=== PATIENT | female | born 1990 | race Caucasian/White ===

== ENCOUNTER 2017-03-09 14:39 | Emergency (ER) | payer OTHER ==
[2017-03-09 14:59] VITALS: O2SAT 98
[2017-03-09] MEDS ORDERED: TORAdol 30 mg Injection IM ONE (15:31)
--- NOTE | 2017-03-09 15:35 | ERPHSYRPT ---
- History of Present Illness Time Seen by Provider: 03/09/17 15:28 Source: patient Exam Limitations: no limitations Patient Subjective Stated Complaint: lt back pain Triage Nursing Assessment: at 0800--stood to stand and had sudden onset of pain to lt lower back to lt toes. denies injury. good sensation. no brusing or swelling noted. Physician History: 26-year-old white female with history of chronic back pain Arrives with complaint of pain in the left the low lumbar region symptoms since 8:00 this morning she states she stood up and began having severe pain states she can't get comfortable. She is not having any urinary symptoms no neurologic symptoms she is moving all extremities she denies any injuries. Past medical history includes chronic back pain Past surgical history is negative. Timing/Duration: today (8:00 this morning) Severity: moderate Modifying Factors: Improves With: nothing Associated Symptoms: other (pain left lumbar region), No nausea, No vomiting, No abdominal pain, No shortness of breath, No heartburn, No diaphoresis, No cough, No chills, No chest pain, No fever, No headaches, No loss of appetite, No malaise, No rash, No syncope, No seizure, No weakness Allergies/Adverse Reactions: No Known Drug Allergies Allergy (Unverified 03/09/17 14:58) Home Medications: Gabapentin [Neurontin] 300 mg PO TID 09/27/15 [History] Bupropion HCl [Wellbutrin] 100 mg PO DAILY 03/09/17 [History] Metformin HCl [Glucophage] 1,000 mg PO BID 03/09/17 [History] Nifedipine [Procardia Xl] 60 mg PO DAILY 03/09/17 [History] Hx Tetanus, Diphtheria Vaccination/Date Given: Yes Hx Influenza Vaccination/Date Given: No Hx Pneumococcal Vaccination/Date Given: No Immunizations Up to Date: Yes - Review of Systems Constitutional: No Fever, No Chills Eyes: No Symptoms Ears, Nose, & Throat: No Symptoms Respiratory: No Cough, No Dyspnea Cardiac: No Chest Pain, No Edema, No Syncope Abdominal/Gastrointestinal: No Abdominal Pain, No Nausea, No Vomiting, No Diarrhea Genitourinary Symptoms: No Dysuria Musculoskeletal: Other (pain left lumbar region) Skin: No Rash Neurological: No Dizziness, No Focal Weakness, No Sensory Changes Psychological: No Symptoms Endocrine: No Symptoms All Other Systems: Reviewed and Negative - Past Medical History Pertinent Past Medical History: Yes Musculoskeletal History: Other Psycho-Social History: Anxiety Female Reproductive Disorders: Other Other Medical History: BACK PROBLEMS - Past Surgical History Past Surgical History: No - Social History Smoking Status: Current every day smoker Exposure to second hand smoke: No Drug Use: none Patient Lives Alone: No - Female History Hx Last Menstrual Period: 02/05/2017 - Nursing Vital Signs Nursing Vital Signs: Initial Vital Signs Temperature 97.9 F Temperature Source Oral Pulse Rate 104 Respiratory Rate 16 Blood Pressure [] 119/76 Pain Intensity 4 - Physical Exam General Appearance: moderate distress, alert Eye Exam: PERRL/EOMI, eyes nml inspection Ears, Nose, Throat Exam: normal ENT inspection, TMs normal, pharynx normal, moist mucous membranes Neck Exam: normal inspection, non-tender, supple, full range of motion Respiratory Exam: normal breath sounds, lungs clear, No respiratory distress Cardiovascular Exam: regular rate/rhythm, normal heart sounds, normal peripheral pulses Gastrointestinal/Abdomen Exam: soft, normal bowel sounds, No tenderness, No mass Back Exam: normal range of motion, other (pain left lumbar region), No CVA tenderness, No vertebral tenderness Extremity Exam: normal inspection, normal range of motion, pelvis stable Neurologic Exam: alert, oriented x 3, cooperative, normal mood/affect, nml cerebellar function, nml station & gait, sensation nml, No motor deficits Skin Exam: normal color, warm, dry, No rash Lymphatic Exam: No adenopathy SpO2 Interpretation: normal (98%) SpO2: 98 Oxygen Delivery: Room Air - Radiology Exams L-Spine X-ray Interpretation: Discussed w/ radiologist (lumbar spine, and L5-L1 degenerative changes nothing acute) Ordered Tests: Active Orders 24 hr Category Date Time Status LUMBAR COMPLETE (MIN 4 VIEWS) Stat Exams 03/09/17 15:32 Completed CULTURE,URINE Stat Lab 03/09/17 16:28 Ordered HCG,QUALITATIVE URINE Stat Lab 03/09/17 15:32 Completed UA W/ MICROSCOPIC Stat Lab 03/09/17 15:32 Completed Medication Summary Discontinued Medications Generic Name Dose Route Start Last Admin Trade Name Freq PRN Reason Stop Dose Admin Ketorolac Tromethamine 60 mg 03/09/17 15:31 03/09/17 15:41 Toradol 30 Mg Injection IM 03/09/17 15:32 60 mg STAT ONE Administration Ketorolac Tromethamine Confirm 03/09/17 15:39 Toradol 30 Mg Injection Administered 03/09/17 15:40 Dose 60 mg .ROUTE .STK-MED ONE Lab/Rad Data: Laboratory Results 03/09/17 03/09/17 Range/Units 15:32 15:32 Ur Collection Type CLEAN CATCH Urine Color YELLOW (YELLOW) Urine Appearance CLEAR (CLEAR) Urine pH 5.0 (5-6) Ur Specific [place] 1.010 (1.005-1.025) Urine Protein NEGATIVE (Negative) Urine Glucose (UA) NEGATIVE (NEGATIVE) mg/dL Urine Ketones NEGATIVE (NEGATIVE) Urine Nitrite NEGATIVE (NEGATIVE) Urine Bilirubin NEGATIVE (NEGATIVE) Urine Urobilinogen 0.2 (0-1) mg/dL Urine WBC (Auto) SMALL (NEGATIVE) Urine RBC (Auto) TRACE-LYSED (0-5) Hilario/ul Urine Microscopic WBC 5-10 (0-5) /HPF Ur Epithelial Cells MODERATE (FEW) /HPF Urine Bacteria FEW (NEGATIVE) /HPF Urine HCG, Qual NEGATIVE (Negative) Specimen Received 03/09/17 1515 - Progress Progress: improved Progress Note: 03/09/17 16:30 Patient feeling better but not completely pain-free after Toradol 60 IM. Urine shows 5-10 white cells negative nitrites. LS-spine shows degenerative changes L5-S1 nothing acute. Will plan to discharge patient with Flexeriespinoza, [place], she is to take over-the- counter Advil for pain as well. 03/09/17 16:35 Patient's Flexeril tablets shows 10 mg orally 3 times a day 0 tablets have changed this to show 15 tablets. - Departure Time of Disposition: 16:31 Departure Disposition: Home Clinical Impression: Back pain Qualifiers: Back pain location: low back pain Chronicity: acute Back pain laterality: left Sciatica presence: without sciatica Qualified Code(s): M54.5 - Low back pain Lumbar strain Qualifiers: Encounter type: initial encounter Qualified Code(s): S39.012A - Strain of muscle, fascia and tendon of lower back, initial encounter Condition: Fair Critical Care Time: No Instructions: Low Back Pain Additional Instructions: Return home. Advil 2-3 tablets orally every 6 hours with food for 5 days as needed for pain. Flexeril 10 mg orally 3 times a day for 5 days. [place] 5/325 #15 one orally every 4-6 hours as needed for pain. Follow-up with your family doctor if symptoms are worse, no better in 48 hours, or persist longer than one week. Return for acute distress or for severe symptoms. Prescriptions: Cyclobenzaprine HCl [Flexeril] 10 mg PO TID #0 tablet Hydrocodone/Acetaminophen [[place] 5-325 Tablet] 1 tab PO Q4-6HPRN PRN #15 tablet PRN Reason: Pain
[2017-03-09 15:36] LABS: Collection Type CLEAN CATCH
[2017-03-09 15:38] LABS: Bacteria FEW /HPF (NEGATIVE); COMPLETE URINE MICROSCOPIC? YES; Epithelial Cells MODERATE /HPF (FEW)
[2017-03-09] MEDS ORDERED: TORAdol 30 mg Injection ONE (15:39)
--- NOTE | 2017-03-09 16:25 | XRAY ---
Indication: Back pain. No known injury. Comparison: None 5 views of the lumbar spine demonstrates 5 lumbar vertebral segments in normal alignment with mild/moderate L5-S1 degenerative disc disease as evidenced by disc space loss and endplate sclerosis/spurring. Same level also demonstrates moderate bilateral degenerative facet arthropathy. No acute fracture, subluxation, or pars interarticularis defect. Visualized soft tissues unremarkable. Impression: L5-S1 degenerative changes. Nothing acute.
[2017-03-09 16:52] VITALS: BP 128/70; PULSE 100
== END 2017-03-09 16:51 | disposition home or self-care (01) ==
LOC: ED 14:39
DX: M54.5 Low back pain (principal); S39.012A Strain of muscle, fascia and tendon of lower back, initial encounter; Z87.898 Personal history of other specified conditions
CPT/HCPCS: 72110; 81000; 84703; 87086; 99284; J1885

== ENCOUNTER 2017-04-11 19:04 | Emergency (ER) | payer OTHER ==
[2017-04-11] MEDS ORDERED: AMOXIL 500 MG PO ONE (20:33)
--- NOTE | 2017-04-11 20:33 | ERPHSYRPT ---
- History of Present Illness Time Seen by Provider: 04/11/17 20:25 Source: patient Exam Limitations: clinical condition Patient Subjective Stated Complaint: a0 - gestation of 10 weeks - reports that she began having fever earlier today with cough/cold symptoms with rhinorrhea and cough and tenderness in the chest with headache since today as well - also reports that she has pain in the right groing when she stands Triage Nursing Assessment: ambulatory to treatment area - steady gait - moves all extremities with equal strength. alert/oriented - pleasant affect. skin pwd - no rash/injury. resps easy - non-labored Physician History: PATIENT IS A -2, PARA-1, 10 WEEK GESTATION WHO COMPLAINS OF SORETHROAT AND PRODUCTIVE COUGH FOR 2-3 DAYS. HAS PAIN UPON COUGHING, DENIES FEVER, DYSPNEA CHILLS OR ABDOMINAL PAIN. Timing/Duration: day(s) Cough Quality/Degree: productive cough Possible Cause: occasional episodes Modifying Factors: Improves With: coughing Associated Symptoms: chest pain/soreness, sore throat Allergies/Adverse Reactions: No Known Drug Allergies Allergy (Unverified 04/11/17 19:58) Home Medications: Vits W-Ca,Fe,FA(<1Mg) [] 1 each PO 04/11/17 [History] Hx Tetanus, Diphtheria Vaccination/Date Given: No Hx Influenza Vaccination/Date Given: No Hx Pneumococcal Vaccination/Date Given: No Immunizations Up to Date: Yes - Review of Systems Constitutional: No Fever, No Chills Eyes: No Symptoms Ears, Nose, & Throat: No Symptoms Respiratory: Cough, No Dyspnea Cardiac: No Symptoms, No Chest Pain, No Edema, No Syncope Abdominal/Gastrointestinal: No Symptoms, No Abdominal Pain, No Nausea, No Vomiting, No Diarrhea Genitourinary Symptoms: No Symptoms, No Dysuria Musculoskeletal: No Symptoms, No Back Pain, No Neck Pain Skin: No Symptoms, No Rash Neurological: No Symptoms, No Dizziness, No Focal Weakness, No Sensory Changes Psychological: No Symptoms Endocrine: No Symptoms All Other Systems: Reviewed and Negative - Past Medical History Pertinent Past Medical History: Yes Musculoskeletal History: Other Psycho-Social History: Anxiety Female Reproductive Disorders: Other Other Medical History: BACK PROBLEMS - Past Surgical History Past Surgical History: No - Social History Smoking Status: Never smoker Exposure to second hand smoke: No Drug Use: none Patient Lives Alone: No - Female History Hx Last Menstrual Period: 02/05/2017 Expected Date of Delivery: 11/12/17 - Nursing Vital Signs Nursing Vital Signs: Initial Vital Signs Temperature 99.1 F Temperature Source Oral Pulse Rate 95 Respiratory Rate 14 Blood Pressure [Right Arm] 137/73 Pain Intensity 4 - Physical Exam General Appearance: no apparent distress, alert Eye Exam: PERRL/EOMI, eyes nml inspection Ears, Nose, Throat Exam: normal ENT inspection, TMs normal, pharynx normal, moist mucous membranes Neck Exam: normal inspection, non-tender, supple, full range of motion Respiratory Exam: normal breath sounds, chest tenderness (PARASTERNAL CHEST WALL TENDERNESS T-2 TO T-5), lungs clear, No respiratory distress Cardiovascular Exam: regular rate/rhythm, normal heart sounds Gastrointestinal/Abdomen Exam: soft, other (NONTENDER), No tenderness Back Exam: normal inspection, No CVA tenderness, No vertebral tenderness Extremity Exam: normal inspection, normal range of motion Neurologic Exam: alert, oriented x 3, cooperative, normal mood/affect, sensation nml, No motor deficits Skin Exam: normal color, warm, dry, No rash Lymphatic Exam: No adenopathy SpO2: 98 Oxygen Delivery: Room Air Ordered Tests: Active Orders 24 hr Category Date Time Status Clean Catch Urine Specimen STAT Care 04/11/17 20:28 Active CULTURE, THROAT Stat Lab 04/11/17 20:28 Received STREP SCREEN-BETA A Stat Lab 04/11/17 20:28 Completed UA W/ MICROSCOPIC Stat Lab 04/11/17 20:45 Completed Medication Summary Discontinued Medications Generic Name Dose Route Start Last Admin Trade Name Braedenq PRN Reason Stop Dose Admin Amoxicillin 500 mg 04/11/17 20:33 04/11/17 20:38 Amoxil 500 Mg PO 04/11/17 20:34 500 mg STAT ONE Administration Amoxicillin Confirm 04/11/17 20:37 Amoxil 500 Mg Administered 04/11/17 20:38 Dose 500 mg .ROUTE .[facility]-MED ONE Lab/Rad Data: Laboratory Results 04/11/17 04/11/17 Range/Units 20:45 20:28 Ur Collection Type CLEAN CATCH Urine Color YELLOW (YELLOW) Urine Appearance CLEAR (CLEAR) Urine pH 6.0 (5-6) Ur Specific [place] >=1.030 (1.005-1.025) Urine Protein TRACE (Negative) Urine Glucose (UA) 500 (NEGATIVE) mg/dL Urine Ketones TRACE (NEGATIVE) Urine Nitrite NEGATIVE (NEGATIVE) Urine Bilirubin NEGATIVE (NEGATIVE) Urine Urobilinogen 0.2 (0-1) mg/dL Urine WBC (Auto) TRACE (NEGATIVE) Urine RBC (Auto) NEGATIVE (0-5) Hilario/ul Urine Microscopic WBC 2-5 (0-5) /HPF Ur Epithelial Cells MODERATE (FEW) /HPF Calcium Oxalate Crystal 2-5 (NEGATIVE) /HPF Urine Bacteria RARE (NEGATIVE) /HPF Urine Mucus MANY (NEGATIVE) /HPF Streptococcus Screen NEGATIVE (Negative) Specimen Received [id number] - Progress Progress Note: 04/11/17 20:33 PATIENT GIVEN AMOXICILLIN 500MG ORALLY Counseled pt/family regarding: lab results, diagnosis, need for follow-up - Departure Time of Disposition: 21:47 Departure Disposition: Home Clinical Impression: ACUTE BRONCHITIS, Condition: Stable Critical Care Time: No Referrals: ASHLEY VILLATORO [Primary Care Provider] - Additional Instructions: TYLENOL EVERY 4 HOURS NEEDED FOR PAIN OR FEVER. ANTIBIOTIC AMOXICILLIN 500MG EVERY 8 HOURS FOR 10 DAYS. CONSULT YOUR FAMILY PHYSICIAN FOR EVALUATION IN 1 WEEK FOR FOLLOWUP Prescriptions: Amoxicillin 500 mg PO TID #30 tablet
[2017-04-11] MEDS ORDERED: AMOXIL 500 MG ONE (20:37)
[2017-04-11 21:01] LABS: Collection Type CLEAN CATCH
[2017-04-11 21:02] LABS: COMPLETE URINE MICROSCOPIC? YES
[2017-04-11 21:04] LABS: Mucus MANY /HPF (NEGATIVE)
[2017-04-11 21:07] LABS: Bacteria RARE /HPF (NEGATIVE); Epithelial Cells MODERATE /HPF (FEW)
[2017-04-11 22:03] VITALS: BP 124/76; PULSE 98; O2SAT 97
== END 2017-04-11 22:19 | disposition home or self-care (01) ==
LOC: ED 19:04
DX: J20.9 Acute bronchitis, unspecified (principal); R07.89 Other chest pain; Z33.1 Pregnant state, incidental; Z3A.10 10 weeks gestation of pregnancy
CPT/HCPCS: 81000; 87070; 87430; 99283; 99284; A9270-GY

== ENCOUNTER 2017-06-06 20:41 | Emergency (ER) | payer OTHER ==
--- NOTE | 2017-06-06 21:17 | ERPHSYRPT ---
- History of Present Illness Time Seen by Provider: 06/06/17 21:10 Source: patient Exam Limitations: no limitations Patient Subjective Stated Complaint: Pt sts suprapubic cramping after doing some cleaning today. Pt sts recently tx for UTI. Pt sts no bleeding. Pt sts pain is 4/10. Triage Nursing Assessment: Pt alert, oriented, answers all questions appropriately. Skin p/w/d, resps non-labored. Pt ambulatory to tx room, steady gait noted. Physician History: 27-year-old white female who states that she is 15 weeks with a last menstrual period of February 05, 2017 who is 2 para 1. She arrives with complaint of lower abdominal cramping since this afternoon after cleaning. Patient states she has some pain in her back as well. She has no vaginal discharge no dysuria no hematuria no vaginal bleeding. Past medical history includes anxiety and back problems Patient states she has had an ultrasound this at about 8 weeks estimated gestational age Timing/Duration: today (this afternoon) Severity: moderate Modifying Factors: Improves With: other (states she was cleaning when she began to have abdominal cramping) Associated Symptoms: abdominal pain, No nausea, No vomiting, No shortness of breath, No heartburn, No diaphoresis, No chills, No chest pain, No fever, No headaches, No loss of appetite, No malaise, No rash, No syncope, No seizure, No weakness Allergies/Adverse Reactions: No Known Drug Allergies Allergy (Unverified 04/11/17 19:58) Home Medications: Vits W-Ca,Fe,FA(<1Mg) [] 1 each PO 04/11/17 [History] Hx Tetanus, Diphtheria Vaccination/Date Given: No Hx Influenza Vaccination/Date Given: No Hx Pneumococcal Vaccination/Date Given: No Immunizations Up to Date: Yes - Review of Systems Constitutional: No Fever, No Chills Eyes: No Symptoms Ears, Nose, & Throat: No Symptoms Respiratory: No Cough, No Dyspnea Cardiac: No Chest Pain, No Edema, No Syncope Abdominal/Gastrointestinal: Abdominal Pain (abdominal cramping) Genitourinary Symptoms: (15 weeks ), No Dysuria Musculoskeletal: No Back Pain, No Neck Pain Skin: No Rash Neurological: No Dizziness, No Focal Weakness, No Sensory Changes Psychological: No Symptoms Endocrine: No Symptoms All Other Systems: Reviewed and Negative - Past Medical History Pertinent Past Medical History: Yes Cardiac History: Hypertension Musculoskeletal History: Other Psycho-Social History: Anxiety Female Reproductive Disorders: Other Other Medical History: BACK PROBLEMS, gestational diabetes prior - Past Surgical History Past Surgical History: No - Social History Smoking Status: Never smoker Exposure to second hand smoke: No Drug Use: none Patient Lives Alone: No - Female History Expected Date of Delivery: 11/25/17 - Nursing Vital Signs Nursing Vital Signs: Initial Vital Signs Temperature 98.2 F Temperature Source Oral Pulse Rate 65 Respiratory Rate 16 Blood Pressure [Right Arm] 119/59 Pain Intensity 4 - Physical Exam General Appearance: no apparent distress, alert Eye Exam: PERRL/EOMI, eyes nml inspection Ears, Nose, Throat Exam: normal ENT inspection, TMs normal, pharynx normal, moist mucous membranes Neck Exam: normal inspection, non-tender, supple, full range of motion Respiratory Exam: normal breath sounds, lungs clear, No respiratory distress Cardiovascular Exam: regular rate/rhythm, normal heart sounds, normal peripheral pulses Gastrointestinal/Abdomen Exam: soft, normal bowel sounds, tenderness (slight lower abdominal tenderness), other Pelvic Exam: normal external exam, other (pelvic examination normal external female genitalia cervix is closed, small amount of white to yellow vaginal mucus no adnexal tenderness) Back Exam: normal inspection, normal range of motion, No CVA tenderness, No vertebral tenderness Extremity Exam: normal inspection, normal range of motion, pelvis stable Neurologic Exam: alert, oriented x 3, cooperative, normal mood/affect, nml cerebellar function, nml station & gait, sensation nml, No motor deficits Skin Exam: normal color, warm, dry, No rash Lymphatic Exam: No adenopathy SpO2 Interpretation: normal Oxygen Delivery: Room Air - Course Nursing assessment & vital signs reviewed: Yes Ordered Tests: Active Orders 24 hr Category Date Time Status Heart Tones-ED STAT Care 06/06/17 21:10 Active IV Insertion STAT Care 06/06/17 21:10 Active Pelvic Exam Assist STAT Care 06/06/17 21:10 Active Re-Check Vital Signs STAT Care 06/06/17 21:10 Active CBC W DIFF Stat Lab 06/06/17 21:30 Completed CMP Stat Lab 06/06/17 21:30 Completed UA W/RFX UR CULTURE Stat Lab 06/06/17 21:30 Completed Wet Prep Stat Lab 06/06/17 01:28 Received Medication Summary Generic Name Dose Route Start Last Admin Trade Name Debbi PRN Reason Stop Dose Admin Sodium Chloride 1,000 mls @ 999 mls/hr 06/07/17 00:49 06/07/17 00:53 Sodium Chloride 0.9% 1000 Ml IV 06/07/17 01:49 999 mls/hr .Q1H1M STA Administration Discontinued Medications Generic Name Dose Route Start Last Admin Trade Name Debbi PRN Reason Stop Dose Admin Sodium Chloride Confirm 06/07/17 00:52 Sodium Chloride 0.9% 1000 Ml Administered 06/07/17 00:53 Dose 1,000 mls @ ud .ROUTE .STK-MED ONE Lab/Rad Data: Laboratory Result Diagrams 06/06/17 21:30 06/06/17 21:30 Laboratory Results 06/06/17 06/06/17 06/06/17 Range/Units 21:30 21:30 21:30 WBC 10.1 (4.0-10.5) K/mm3 RBC 4.14 (4.1-5.4) M/mm3 Hgb 12.0 (12.0-16.0) gm/dl Hct 35.4 (35-47) % MCV 85.5 (78-100) fl MCH 29.0 (26-32) pg MCHC 33.9 (32-36) g/dl RDW 12.5 (11.5-14.0) % Plt Count 223 (150-450) K/mm3 MPV 11.1 H (6-9.5) fl Gran % 73.1 H (36.0-66.0) % Lymphocytes % 18.1 L (24.0-44.0) % Monocytes % 7.6 (0.0-12.0) % Eosinophils % 1.0 (0.00-5.0) % Basophils % 0.2 (0.0-0.4) % Basophils # 0.02 (0-0.4) Sodium 139 (136-145) mEq/L Potassium 3.8 (3.5-5.1) mEq/L Chloride 104 (98-107) mEq/L Carbon Dioxide 23.3 (21-32) mEq/L Anion Gap 15.0 (5-15) MEQ/L BUN 8 L (9-20) mg/dL Creatinine 0.61 (0.55-1.30) mg/dl Estimated GFR > 60 ML/MIN Glucose 97 (70-110) MG/DL Calcium 9.5 (8.5-10.1) mg/dL Total Bilirubin 0.10 L (0.2-1.0) mg/dL AST 14 L (15-37) U/L ALT 17 (12-78) U/L Alkaline Phosphatase 42 L (46-116) U/L Serum Total Protein 6.9 (6.4-8.2) gm/dL Albumin 3.1 L (3.4-5.0) g/dL Ur Collection Type CLEAN CATCH Urine Color YELLOW (YELLOW) Urine Appearance CLOUDY (CLEAR) Urine pH 7.0 (5-6) Ur Specific [place] 1.020 (1.005-1.025) Urine Protein NEGATIVE (Negative) Urine Ketones NEGATIVE (NEGATIVE) Urine Blood NEGATIVE (0-5) Hilario/ul Urine Nitrite NEGATIVE (NEGATIVE) Urine Bilirubin NEGATIVE (NEGATIVE) Urine Urobilinogen NORMAL (0-1) mg/dL Ur Leukocyte Esterase NEGATIVE (NEGATIVE) Urine Glucose NEGATIVE (NEGATIVE) mg/dL Specimen Received [id number] - Progress Progress: improved Progress Note: 06/07/17 00:11 Patient's laboratory data essentially normal. heart tones in the 140s. Awaiting placement in the room for nurse to assist with pelvic examination. 06/07/17 01:27 Patient is pain free she is receiving 1 L of normal saline plan to discharge. Labs are normal. Awaiting GC and chlamydia. . - Departure Time of Disposition: 01:27 Departure Disposition: Home Clinical Impression: Intrauterine Abdominal pain Qualifiers: Abdominal location: unspecified location Qualified Code(s): R10.9 - Unspecified abdominal pain Condition: Fair Critical Care Time: No Referrals: ASHLEY VILLATORO [Primary Care Provider] - Additional Instructions: Return home. Plenty of fluids. Tylenol every 4 hours as needed for pain. Rest. Follow-up with your family doctor. Return for acute distress or for severe symptoms.
[2017-06-06 21:41] LABS: BASOPHIL % 0.2 % (0.0-0.4); Granulocytes % 73.1 % (36.0-66.0); Lymphocytes % 18.1 % (24.0-44.0); Mean Cell Volume 85.5 fl (78-100); Mean Platelet Volume 11.1 fl (6-9.5); Monocytes % 7.6 % (0.0-12.0); Platelet Count 223 K/mm3 (150-450); Red Blood Count 4.14 M/mm3 (4.1-5.4); Red Cell Distribution Width 12.5 % (11.5-14.0); White Blood Count 10.1 K/mm3 (4.0-10.5)
[2017-06-06 21:45] LABS: Collection Type CLEAN CATCH
[2017-06-06 21:46] LABS: ADD URINE CULTURE? NO (NO); Bilirubin NEGATIVE (NEGATIVE); Blood NEGATIVE Ery/ul (0-5); COMPLETE URINE MICROSCOPIC? NO; Glucose NEGATIVE (NEGATIVE); Leukocyte Esterase NEGATIVE (NEGATIVE)
[2017-06-06 22:08] LABS: ALBUMIN 3.1 g/dL (3.4-5.0); ALKALINE PHOSPHATASE 42 U/L (46-116); BLOOD UREA NITROGEN 8 mg/dL (9-20); CHLORIDE 104 mEq/L (98-107); Carbon Dioxide 23.3 mEq/L (21-32); Glucose 97 MG/DL (70-110); Potassium 3.8 mEq/L (3.5-5.1); SGOT/AST 14 U/L (15-37); SODIUM 139 mEq/L (136-145); Total Protein 6.9 gm/dL (6.4-8.2)
[2017-06-06 22:22] LABS: SGPT/ALT 17 U/L (12-78)
[2017-06-07] MEDS ORDERED: Sodium Chloride 0.9% 1000 ML 1,000 ML IV STA (00:49)
[2017-06-07 00:51] VITALS: BP 119/59; PULSE 65; O2SAT 99
[2017-06-07] MEDS ORDERED: Sodium Chloride 0.9% 1000 ML 1,000 ML ONE (00:52)
[2017-06-07 01:34] LABS: Bacteria Few; Trichomonas None Seen; Yeast None Seen
[2017-06-07 01:35] LABS: Clue Cells Few
[2017-06-07 03:04] LABS: CHLAMYDIA DNA NEGATIVE
== END 2017-06-07 02:01 | disposition home or self-care (01) ==
LOC: ED 20:41
DX: O26.892 Other specified pregnancy related conditions, second trimester (principal); R10.9 Unspecified abdominal pain; M54.9 Dorsalgia, unspecified; I10 Essential (primary) hypertension
CPT/HCPCS: 36000; 36415; 80053; 81002; 85025; 87210; 87490; 87590; 96360; 99284

== ENCOUNTER 2018-07-31 08:39 | Emergency (ER) | payer OTHER, MEDICAID ==
[2018-07-31] MEDS ORDERED: Rocephin 1000 MG INJ (10:02)
[2018-07-31] MEDS ORDERED: solu-MEDROL 125 MG (10:02)
[2018-07-31] MEDS: solu-MEDROL 125 MG IM (10:10)
[2018-07-31] MEDS: Rocephin 1000 MG INJ IM (10:10)
== END 2018-07-31 10:30 | disposition home or self-care (01) ==
LOC: ED 08:39
CPT/HCPCS: 96372; J0696; J2930

== ENCOUNTER 2018-10-31 09:14 | Emergency (ER) | payer OTHER ==
--- NOTE | 2018-10-31 09:52 | ERPHSYRPT ---
- History of Present Illness Time Seen by Provider: 10/31/18 09:40 Historian: patient Exam Limitations: no limitations Patient Subjective Stated Complaint: states began having rlq abd pain at 0430 today. started period at the same time. denies any urinary symptoms. Triage Nursing Assessment: ambulated to room per self. skin w/d, color normal, resp easy. abd soft, large, tender Physician History: 28 y/o white female presents with sudden onset of rlq abd pain that occurred at 0430 this am. pt has h/o ovarian cysts. pt started her menstrual period this am. pt has had a btl in past. no n/v/d. no vaginal discharge. pt is having worsening pain. pain radiates into right flank. Timing/Duration: today Activities at Onset: none Quality: cramping Abdominal Pain Onset Location: RLQ, flank Pain Radiation: flank Severity of Pain-Max: moderate Severity of Pain-Current: mild Modifying Factors: Improves With: lying down (improves) Previous symptoms: no prior history Allergies/Adverse Reactions: No Known Drug Allergies Allergy (Verified 10/31/18 09:44) Home Medications: Sertraline HCl [Zoloft] 25 mg PO DAILY 10/31/18 [History] Hx Tetanus, Diphtheria Vaccination/Date Given: No Hx Influenza Vaccination/Date Given: No Hx Pneumococcal Vaccination/Date Given: No - Review of Systems Constitutional: No Symptoms Eyes: No Symptoms Ears, Nose, & Throat: No Symptoms Respiratory: No Symptoms Cardiac: No Symptoms Abdominal/Gastrointestinal: Abdominal Pain (rlq), No Nausea, No Vomiting, No Diarrhea Genitourinary Symptoms: Flank Pain (right), Vaginal Bleeding, No Vaginal Discharge Musculoskeletal: No Symptoms Skin: No Symptoms Neurological: No Symptoms Psychological: No Symptoms Endocrine: No Symptoms Hematologic/Lymphatic: No Symptoms Immunological/Allergic: No Symptoms All Other Systems: Reviewed and Negative - Past Medical History Pertinent Past Medical History: Yes Neurological History: No Pertinent History ENT History: No Pertinent History Cardiac History: Hypertension Respiratory History: Bronchitis Endocrine Medical History: No Pertinent History Musculoskeletal History: Other GI Medical History: No Pertinent History History: No Pertinent History Psycho-Social History: Anxiety, Depression Female Reproductive Disorders: Other Other Medical History: BACK PROBLEMS, gestational diabetes prior - Past Surgical History Past Surgical History: Yes Neuro Surgical History: No Pertinent History Cardiac: No Pertinent History Respiratory: No Pertinent History Gastrointestinal: No Pertinent History Genitourinary: No Pertinent History Female Surgical History: Tubal Ligation - Social History Smoking Status: Current every day smoker How long have you smoked: 12 Exposure to second hand smoke: No Drug Use: none Patient Lives Alone: No - Female History Hx Last Menstrual Period: 10/31/18 Hx Now: No - Nursing Vital Signs Nursing Vital Signs: Initial Vital Signs Temperature 98.6 F 10/31/18 09:25 Pulse Rate 97 H 10/31/18 09:25 Respiratory Rate 16 10/31/18 09:25 Blood Pressure 149/88 10/31/18 09:25 O2 Sat by Pulse Oximetry 99 10/31/18 09:25 Pain Scale Pain Intensity 5 - Physical Exam General Appearance: mild distress, alert Eye Exam: PERRL/EOMI, eyes nml inspection Ears, Nose, Throat Exam: normal ENT inspection, moist mucous membranes Neck Exam: normal inspection, non-tender, supple, full range of motion Respiratory Exam: normal breath sounds, lungs clear, airway intact, No chest tenderness, No respiratory distress, No accessory muscle use, No rhonchi, No wheezing, No stridor Cardiovascular Exam: regular rate/rhythm, normal heart sounds, normal peripheral pulses Gastrointestinal/Abdomen Exam: soft, normal bowel sounds, tenderness (right lower quadrant), guarding, rebound Pelvic Exam: not done Rectal Exam: not done Back Exam: normal inspection, normal range of motion, CVA tenderness (right), No vertebral tenderness Extremity Exam: normal inspection, normal range of motion, pelvis stable Neurologic Exam: alert, oriented x 3, cooperative, electronic repair 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 II-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 nml as tested Skin Exam: normal color, warm, dry SpO2: 99 Oxygen Delivery: Room Air - Course Nursing assessment & vital signs reviewed: Yes Ordered Tests: Active Orders 24 hr Category Date Time Status IV Insertion STAT Care 10/31/18 09:54 Active ABDOMEN AND PELVIS W CONTRAST [CT] Stat Exams 10/31/18 09:55 Completed AMYLASE Stat Lab 10/31/18 09:54 Completed CBC W DIFF Stat Lab 10/31/18 09:54 Completed CMP Stat Lab 10/31/18 09:54 Completed CULTURE,URINE Stat Lab 10/31/18 10:13 Received LIPASE Stat Lab 10/31/18 09:54 Completed Lactic Acid Stat Lab 10/31/18 10:09 Results UA W/RFX UR CULTURE Stat Lab 10/31/18 10:13 Completed Medication Summary Discontinued Medications Generic Name Dose Route Start Last Admin Trade Name Debbi PRN Reason Stop Dose Admin Sodium Chloride 1,000 mls @ 999 mls/hr 10/31/18 09:54 10/31/18 10:37 Sodium Chloride 0.9% 1000 Ml IV 10/31/18 10:54 999 mls/hr .Q1H1M STA Administration Sodium Chloride Confirm 10/31/18 10:37 Sodium Chloride 0.9% 1000 Ml Administered 10/31/18 10:38 Dose 1,000 mls @ ud .ROUTE .STK-MED ONE Lab/Rad Data: Laboratory Result Diagrams 10/31/18 09:54 10/31/18 09:54 Laboratory Results 10/31/18 10/31/18 10/31/18 Range/Units 10:13 10:09 09:54 WBC (4.0-10.5) K/mm3 RBC (4.1-5.4) M/mm3 Hgb (12.0-16.0) gm/dl Hct (35-47) % MCV (78-100) fl MCH (26-32) pg MCHC (32-36) g/dl RDW (11.5-14.0) % Plt Count (150-450) K/mm3 MPV (6-9.5) fl Gran % (36.0-66.0) % Eos # (Auto) (0-0.5) Absolute Lymphs (auto) (1.0-4.6) Absolute Monos (auto) (0.0-1.3) Lymphocytes % (24.0-44.0) % Monocytes % (0.0-12.0) % Eosinophils % (0.00-5.0) % Basophils % (0.0-0.4) % Absolute Granulocytes (1.4-6.9) Basophils # (0-0.4) Sodium 142 (137-145) mmol/L Potassium 3.7 (3.5-5.1) mmol/L Chloride 104 (98-107) mmol/L Carbon Dioxide 25 (22-30) mmol/L Anion Gap 16.5 H (5-15) MEQ/L BUN 11 (7-17) mg/dL Creatinine 0.61 (0.52-1.04) mg/dL Estimated GFR > 60.0 ML/MIN Glucose 143 H (74-106) mg/dL Lactic Acid 2.1 H (0.4-2.0) Calcium 9.4 (8.4-10.2) mg/dL Total Bilirubin 0.20 (0.2-1.3) mg/dL AST 27 (14-36) U/L ALT 33 (0-35) U/L Alkaline Phosphatase 72 (38-126) U/L Serum Total Protein 7.6 (6.3-8.2) g/dL Albumin 4.7 (3.5-5.0) g/dL Amylase 49 (30-110) U/L Lipase 81 (23-300) U/L Urine Color YELLOW (YELLOW) Urine Appearance SLIGHTLY CLOUDY (CLEAR) Urine pH 5.0 (5-6) Ur Specific [place] 1.019 (1.005-1.025) Urine Protein NEGATIVE (Negative) Urine Ketones NEGATIVE (NEGATIVE) Urine Blood LARGE (0-5) Hilario/ul Urine Nitrite NEGATIVE (NEGATIVE) Urine Bilirubin NEGATIVE (NEGATIVE) Urine Urobilinogen NEGATIVE (0-1) mg/dL Ur Leukocyte Esterase TRACE (NEGATIVE) Urine WBC (Auto) 3-5 (0-5) /HPF Urine RBC (Auto) >101 (0-2) /HPF U Epithel Cells (Auto) RARE (FEW) /HPF Urine Bacteria (Auto) RARE (NEGATIVE) /HPF Urine Mucus (Auto) SLIGHT (NEGATIVE) /HPF Urine Culture Reflexed YES (NO) Urine Glucose NEGATIVE (NEGATIVE) mg/dL 10/31/18 Range/Units 09:54 WBC 7.3 (4.0-10.5) K/mm3 RBC 4.85 (4.1-5.4) M/mm3 Hgb 14.0 (12.0-16.0) gm/dl Hct 42.2 (35-47) % MCV 87.0 (78-100) fl MCH 28.9 (26-32) pg MCHC 33.2 (32-36) g/dl RDW 13.4 (11.5-14.0) % Plt Count 235 (150-450) K/mm3 MPV 11.5 H (6-9.5) fl Gran % 78.9 H (36.0-66.0) % Eos # (Auto) 0.14 (0-0.5) Absolute Lymphs (auto) 0.94 L (1.0-4.6) Absolute Monos (auto) 0.45 (0.0-1.3) Lymphocytes % 12.9 L (24.0-44.0) % Monocytes % 6.2 (0.0-12.0) % Eosinophils % 1.9 (0.00-5.0) % Basophils % 0.1 (0.0-0.4) % Absolute Granulocytes 5.76 (1.4-6.9) Basophils # 0.01 (0-0.4) Sodium (137-145) mmol/L Potassium (3.5-5.1) mmol/L Chloride (98-107) mmol/L Carbon Dioxide (22-30) mmol/L Anion Gap (5-15) MEQ/L BUN (7-17) mg/dL Creatinine (0.52-1.04) mg/dL Estimated GFR ML/MIN Glucose (74-106) mg/dL Lactic Acid (0.4-2.0) Calcium (8.4-10.2) mg/dL Total Bilirubin (0.2-1.3) mg/dL AST (14-36) U/L ALT (0-35) U/L Alkaline Phosphatase (38-126) U/L Serum Total Protein (6.3-8.2) g/dL Albumin (3.5-5.0) g/dL Amylase (30-110) U/L Lipase (23-300) U/L Urine Color (YELLOW) Urine Appearance (CLEAR) Urine pH (5-6) Ur Specific [place] (1.005-1.025) Urine Protein (Negative) Urine Ketones (NEGATIVE) Urine Blood (0-5) Hilario/ul Urine Nitrite (NEGATIVE) Urine Bilirubin (NEGATIVE) Urine Urobilinogen (0-1) mg/dL Ur Leukocyte Esterase (NEGATIVE) Urine WBC (Auto) (0-5) /HPF Urine RBC (Auto) (0-2) /HPF U Epithel Cells (Auto) (FEW) /HPF Urine Bacteria (Auto) (NEGATIVE) /HPF Urine Mucus (Auto) (NEGATIVE) /HPF Urine Culture Reflexed (NO) Urine Glucose (NEGATIVE) mg/dL - Progress Progress: pain not gone completely, re-examined Progress Note: 10/31/18 11:46 ct abd/pelvis-no acute process; left ovarian cyst Counseled pt/family regarding: lab results, diagnosis, need for follow-up, rad results - Departure Time of Disposition: 11:49 Departure Disposition: Home Clinical Impression: Abdominal pain, UTI (urinary tract infection) Condition: Stable Critical Care Time: No Referrals: ASHLEY VILLATORO [Primary Care Provider] - Additional Instructions: drink plenty of fluids. use tylenol and ibuprofen for pain. follow up with primary for persistent symptoms Prescriptions: Cephalexin Mh 500 mg [Keflex 500 mg] 500 mg PO TID #21 capsule
[2018-10-31] MEDS ORDERED: Sodium Chloride 0.9% 1000 ML 1,000 ML IV STA (09:54)
[2018-10-31 10:37] LABS: Appearance SLIGHTLY CLOUDY (CLEAR); Bilirubin NEGATIVE (NEGATIVE); Blood LARGE Ery/ul (0-5); Glucose NEGATIVE (NEGATIVE); Ketones NEGATIVE (NEGATIVE); Leukocyte Esterase TRACE (NEGATIVE); Nitrite NEGATIVE (NEGATIVE); Protein,Urine Dip NEGATIVE (Negative); Specific Gravity 1.019 (1.005-1.025); Urobilinogen NEGATIVE mg/dL (0-1)
[2018-10-31] MEDS ORDERED: Sodium Chloride 0.9% 1000 ML 1,000 ML ONE (10:37)
--- NOTE | 2018-10-31 10:48 | XRAY ---
Indication: Right lower quadrant pain. Multiple contiguous axial images obtained through the abdomen and pelvis using 80 cc Isovue 370 contrast only. Comparison: None Lung bases demonstrates minimal bibasilar fibrosis/scarring. No infiltrate or effusion. Heart is not enlarged. Noncontrasted stomach and bowel loops appear nonobstructed. Normal appendix. Mild diffuse scattered colonic fecal debris throughout. No free fluid/air. Bilateral physiologic ovary cyst, largest on the left measuring 2.2 cm. Borderline enlarged spleen measuring 12.4 cm in greatest axial dimension. Remaining liver, gallbladder, pancreas, spleen, adrenal glands, kidneys, ureters, uterus, bladder, and aorta appear unremarkable. No pathologic retroperitoneal lymphadenopathy. Osseous structures intact with lumbosacral junction degenerative disc disease. No ventral or inguinal hernias. Impression: 1. Mild fecal stasis without obstruction. 2. 2.2 cm dominant left ovary cyst and borderline splenomegaly. 3. Remaining CT abdomen/pelvis with contrast exam is negative. CT DI 22.83
[2018-10-31 10:53] LABS: BASOPHIL % 0.1 % (0.0-0.4); Basophil (Absolute #) 0.01 (0-0.4); Eosinophil % 1.9 % (0.00-5.0); Eosinophil (Absolute #) 0.14 (0-0.5); Granulocyte Absolute (ANC) 5.76 (1.4-6.9); Granulocytes % 78.9 % (36.0-66.0); Hematocrit 42.2 % (35-47); Lymphocyte (Absolute #) 0.94 (1.0-4.6); Lymphocytes % 12.9 % (24.0-44.0); Mean Corpuscular Hemoglobin 28.9 pg (26-32); Mean Corpuscular Hgb Concent. 33.2 g/dl (32-36); Mean Platelet Volume 11.5 fl (6-9.5); Monocyte (Absolute #) 0.45 (0.0-1.3); Monocytes % 6.2 % (0.0-12.0); Platelet Count 235 K/mm3 (150-450); Red Blood Count 4.85 M/mm3 (4.1-5.4); Red Cell Distribution Width 13.4 % (11.5-14.0); White Blood Count 7.3 K/mm3 (4.0-10.5)
[2018-10-31 11:05] LABS: ALBUMIN 4.7 g/dL (3.5-5.0); ALKALINE PHOSPHATASE 72 U/L (38-126); AMYLASE 49 U/L (30-110); ANION GAP 16.5 MEQ/L (5-15); BLOOD UREA NITROGEN 11 mg/dL (7-17); CHLORIDE 104 mmol/L (98-107); Calcium 9.4 mg/dL (8.4-10.2); Carbon Dioxide 25 mmol/L (22-30); Creatinine 1 0.61 mg/dL (0.52-1.04); Glucose 143 mg/dL (74-106); LIPASE 81 U/L (23-300); Potassium 3.7 mmol/L (3.5-5.1); SGOT/AST 27 U/L (14-36); SGPT/ALT 33 U/L (0-35); SODIUM 142 mmol/L (137-145); Total Protein 7.6 g/dL (6.3-8.2)
[2018-10-31] MEDS ORDERED: TORAdol 30 mg Injection IV ONE (11:59)
[2018-10-31] MEDS ORDERED: TORAdol 30 mg Injection ONE (12:03)
[2018-10-31 12:09] VITALS: BP 142/87; PULSE 81; O2SAT 100
== END 2018-10-31 12:10 | disposition home or self-care (01) ==
LOC: ED 09:14
DX: R10.31 Right lower quadrant pain (principal); N39.0 Urinary tract infection, site not specified
CPT/HCPCS: 36000; 36415; 74177; 80053; 81001; 82150; 83690; 85025; 87077; 87086; 96360; 99284; J1885

== ENCOUNTER 2020-07-05 02:03 | Emergency (ER) | payer MEDICAID, OTHER ==
[2020-07-05] MEDS ORDERED: Sodium Chloride 0.9% 1000 ML 1,000 ML IV SCH (02:45)
[2020-07-05] MEDS ORDERED: Sodium Chloride 0.9% 1000 ML 1,000 ML ONE (02:45)
[2020-07-05 02:52] LABS: Absolute Neutrophil Ct (ANC) 8.34 (1.4-6.9); BASOPHIL % 0.1 % (0.0-0.4); Basophil (Absolute #) 0.01 (0-0.4); Eosinophil % 1.7 % (0.00-5.0); Eosinophil (Absolute #) 0.19 (0-0.5); Hematocrit 42.6 % (35-47); Hemoglobin 14.2 gm/dl (12.0-16.0); Lymphocyte (Absolute #) 1.65 (1.0-4.6); Lymphocytes % 14.8 % (24.0-44.0); Mean Cell Volume 86.1 fl (78-100); Mean Corpuscular Hemoglobin 28.7 pg (26-32); Mean Corpuscular Hgb Concent. 33.3 g/dl (32-36); Mean Platelet Volume 11.5 fl (7.5-11.0); Monocyte (Absolute #) 0.95 (0.0-1.3); Monocytes % 8.5 % (0.0-12.0); Neutrophil % 74.9 % (36.0-66.0); Platelet Count 238 K/mm3 (150-450); Red Blood Count 4.95 M/mm3 (4.1-5.4); White Blood Count 11.1 K/mm3 (4.0-10.5)
[2020-07-05 02:57] LABS: ALBUMIN 4.6 g/dL (3.5-5.0); ALKALINE PHOSPHATASE 73 U/L (38-126); ANION GAP 14.4 MEQ/L (5-15); BLOOD UREA NITROGEN 11 mg/dL (7-17); CHLORIDE 103 mmol/L (98-107); Calcium 9.2 mg/dL (8.4-10.2); Carbon Dioxide 25 mmol/L (22-30); Creatinine 1 0.68 mg/dL (0.52-1.04); Glucose 152 mg/dL (74-106); LDH-LACTATE DEHYDROGENASE 138 U/L (120-246); MAGNESIUM 1.6 mg/dL (1.6-2.3); Potassium 3.8 mmol/L (3.5-5.1); SGOT/AST 36 U/L (14-36); SGPT/ALT 33 U/L (0-35); SODIUM 138 mmol/L (137-145); Total Protein 7.7 g/dL (6.3-8.2)
[2020-07-05 03:08] LABS: Appearance CLEAR (CLEAR); Bacteria RARE /HPF (NEGATIVE); Bilirubin NEGATIVE (NEGATIVE); Blood NEGATIVE Ery/ul (0-5); Epithelial Cells RARE /HPF (FEW); Glucose NEGATIVE (NEGATIVE); Ketones NEGATIVE (NEGATIVE); Leukocyte Esterase NEGATIVE (NEGATIVE); Mucus SLIGHT /HPF (NEGATIVE); Nitrite NEGATIVE (NEGATIVE); Protein,Urine Dip NEGATIVE (Negative); Specific Gravity 1.002 (1.005-1.025); Urobilinogen NEGATIVE mg/dL (0-1); WBC NONE SEEN /HPF (0-5)
[2020-07-05 03:15] LABS: INR 1.01 (0.8-3.0); PROTIME 11.4 SECONDS (9.95-12.35)
[2020-07-05 03:37] LABS: INFLUENZA A NEGATIVE (NEGATIVE); INFLUENZA B NEGATIVE (NEGATIVE); RESPIRATORY SYNCTIAL VIRUS NEGATIVE (Negative)
--- NOTE | 2020-07-05 04:07 | ERPHSYRPT ---
- History of Present Illness Time Seen by Provider: 07/05/20 02:15 Source: patient Exam Limitations: no limitations Patient Subjective Stated Complaint: pt states she has had a cough since this afternoon. states cough has become more persistent tonight and she has rt side chest pain with cough Triage Nursing Assessment: pt alert and oriented, answers questions approp. pt ambulatory with steady gait noted. skin warm and dry. respirations nonlabored with lungs cta. frequent cough noted. pt states sometimes productive at home. heart rate 95 on monitor, sinus rhythm. Physician History: Patient is a 30-year-old white female presents with a complaint of a cough. She started feeling a little badly for a couple of days and then woke at 2 AM this morning with burning pain in the right chest shooting across. 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 She has no change in smell or taste. Cough Quality/Degree: dry cough Possible Cause: no prior episodes Allergies/Adverse Reactions: No Known Drug Allergies Allergy (Verified 07/05/20 02:21) Home Medications: No Reportable Medications [No Reported Medications] 07/05/20 [History] Hx Tetanus, Diphtheria Vaccination/Date Given: No Hx Influenza Vaccination/Date Given: No Hx Pneumococcal Vaccination/Date Given: No Immunizations Up to Date: No Travel Risk - International Travel Have you traveled outside of the country in past 3 weeks: No - Coronavirus Screening Are you exhibiting any of the following symptoms?: Yes Symptoms: Cough: New Onset Close contact with a COVID-19 positive Pt in past 14-21 Days: No - Review of Systems Constitutional: No Fever, No Chills Eyes: No Symptoms Ears, Nose, & Throat: No Symptoms Respiratory: Cough, Dyspnea Cardiac: Chest Pain, No Edema, No Syncope Abdominal/Gastrointestinal: No Abdominal Pain, No Nausea, No Vomiting, No Diarrhea Genitourinary Symptoms: No Dysuria Musculoskeletal: No Back Pain, No Neck Pain Skin: No Rash Neurological: No Dizziness, No Focal Weakness, No Sensory Changes Psychological: No Symptoms Endocrine: No Symptoms All Other Systems: Reviewed and Negative - Past Medical History Pertinent Past Medical History: Yes Neurological History: No Pertinent History ENT History: No Pertinent History Cardiac History: Hypertension Respiratory History: Bronchitis Endocrine Medical History: No Pertinent History Musculoskeletal History: Other GI Medical History: No Pertinent History History: No Pertinent History Psycho-Social History: Anxiety, Depression Female Reproductive Disorders: Other Other Medical History: BACK PROBLEMS, gestational diabetes prior - Past Surgical History Past Surgical History: Yes Neuro Surgical History: No Pertinent History Cardiac: No Pertinent History Respiratory: No Pertinent History Gastrointestinal: No Pertinent History Genitourinary: No Pertinent History Female Surgical History: Tubal Ligation - Social History Smoking Status: Current every day smoker How long have you smoked: 16yrs Exposure to second hand smoke: No Drug Use: none Patient Lives Alone: No - Female History Hx Last Menstrual Period: 06/16/20 Hx Now: No - Nursing Vital Signs Nursing Vital Signs: Initial Vital Signs Pulse Rate 102 H 07/05/20 02:09 Respiratory Rate 18 07/05/20 02:09 Blood Pressure 144/102 07/05/20 02:09 O2 Sat by Pulse Oximetry 98 07/05/20 02:09 Pain Scale Pain Intensity 3 - Physical Exam General Appearance: no apparent distress, alert Eye Exam: PERRL/EOMI, eyes nml inspection Ears, Nose, Throat Exam: normal ENT inspection, TMs normal, pharynx normal, moist mucous membranes Neck Exam: normal inspection, non-tender, supple, full range of motion Respiratory Exam: normal breath sounds, lungs clear, No respiratory distress Cardiovascular Exam: regular rate/rhythm, normal heart sounds Gastrointestinal/Abdomen Exam: soft, No tenderness Back Exam: normal inspection, No CVA tenderness, No vertebral tenderness Extremity Exam: normal inspection, normal range of motion Neurologic Exam: alert, oriented x 3, cooperative, normal mood/affect, sensation nml, No motor deficits Skin Exam: normal color, warm, dry, No rash Lymphatic Exam: No adenopathy SpO2: 96 - Course Nursing assessment & vital signs reviewed: Yes EKG Interpreted by Me: RATE (96), NORMAL AXIS, prolonged QT interval, 1st degree AV Block, Right Bundle Branch Block (Complete) - Radiology Exams Chest X-ray Interpretation: Interpreted by me, Negative Ordered Tests: Active Orders 24 hr Category Date Time Status EKG-ER Only STAT Care 07/05/20 02:38 Active CHEST 1 VIEW (PORTABLE) Stat Exams 07/05/20 02:39 Taken BLOOD CULTURE Stat Lab 07/05/20 03:03 Received CBC W DIFF Stat Lab 07/05/20 02:44 Completed CMP Stat Lab 07/05/20 02:44 Completed D-DIMER QUANTITATIVE Stat Lab 07/05/20 03:03 Completed Ferritin Stat Lab 07/05/20 03:03 Completed LDH-LACTATE DEHYDROGENASE Stat Lab 07/05/20 02:44 Completed Lactic Acid Stat Lab 07/05/20 03:00 Completed MAGNESIUM Stat Lab 07/05/20 02:44 Completed PROTIME WITH INR Stat Lab 07/05/20 03:03 Completed TROPONIN Q3H Lab 07/05/20 02:44 Completed TROPONIN Q3H Lab 07/05/20 05:45 Ordered TROPONIN Q3H Lab 07/05/20 08:45 Ordered TROPONIN Q3H Lab 07/05/20 11:45 Ordered TROPONIN Q3H Lab 07/05/20 14:45 Ordered UA W/RFX UR CULTURE Stat Lab 07/05/20 02:50 Completed Medication Summary Generic Name Dose Route Start Last Admin Trade Name Freq PRN Reason Stop Dose Admin Sodium Chloride 1,000 mls @ 100 mls/hr 07/05/20 02:45 07/05/20 02:49 Sodium Chloride 0.9% 1000 Ml IV 08/04/20 02:44 100 mls/hr .Q10H SONJA Administration Lab/Rad Data: Laboratory Result Diagrams 07/05/20 02:44 07/05/20 02:44 Laboratory Results 07/05/20 07/05/20 07/05/20 Range/Units 03:03 03:03 03:03 WBC (4.0-10.5) K/mm3 RBC (4.1-5.4) M/mm3 Hgb (12.0-16.0) gm/dl Hct (35-47) % MCV (78-100) fl MCH (26-32) pg MCHC (32-36) g/dl RDW (11.5-14.0) % Plt Count (150-450) K/mm3 MPV (7.5-11.0) fl Gran % (36.0-66.0) % Eos # (Auto) (0-0.5) Absolute Lymphs (auto) (1.0-4.6) Absolute Monos (auto) (0.0-1.3) Lymphocytes % (24.0-44.0) % Monocytes % (0.0-12.0) % Eosinophils % (0.00-5.0) % Basophils % (0.0-0.4) % Absolute Granulocytes (1.4-6.9) Basophils # (0-0.4) PT 11.4 (9.95-12.35) SECONDS INR 1.01 (0.8-3.0) D-Dimer 387 (215-500) ng/mL Sodium (137-145) mmol/L Potassium (3.5-5.1) mmol/L Chloride (98-107) mmol/L Carbon Dioxide (22-30) mmol/L Anion Gap (5-15) MEQ/L BUN (7-17) mg/dL Creatinine (0.52-1.04) mg/dL Estimated GFR ML/MIN Glucose (74-106) mg/dL Lactic Acid (0.4-2.0) Calcium (8.4-10.2) mg/dL Magnesium (1.6-2.3) mg/dL Ferritin 39.5 (6.24-137) ng/mL Total Bilirubin (0.2-1.3) mg/dL AST (14-36) U/L ALT (0-35) U/L Alkaline Phosphatase (38-126) U/L Lactate Dehydrogenase (120-246) U/L Troponin I (0.000-0.034) ng/mL Serum Total Protein (6.3-8.2) g/dL Albumin (3.5-5.0) g/dL Urine Color (YELLOW) Urine Appearance (CLEAR) Urine pH (5-6) Ur Specific [place] (1.005-1.025) Urine Protein (Negative) Urine Ketones (NEGATIVE) Urine Blood (0-5) Hilario/ul Urine Nitrite (NEGATIVE) Urine Bilirubin (NEGATIVE) Urine Urobilinogen (0-1) mg/dL Ur Leukocyte Esterase (NEGATIVE) Urine WBC (Auto) (0-5) /HPF Urine RBC (Auto) (0-2) /HPF U Epithel Cells (Auto) (FEW) /HPF Urine Bacteria (Auto) (NEGATIVE) /HPF Urine Mucus (Auto) (NEGATIVE) /HPF Urine Culture Reflexed (NO) Urine Glucose (NEGATIVE) mg/dL Influenza Type A Ag NEGATIVE (NEGATIVE) Influenza Type B Ag NEGATIVE (NEGATIVE) RSV (PCR) NEGATIVE (Negative) 07/05/20 07/05/20 07/05/20 Range/Units 03:00 02:50 02:44 WBC (4.0-10.5) K/mm3 RBC (4.1-5.4) M/mm3 Hgb (12.0-16.0) gm/dl Hct (35-47) % MCV (78-100) fl MCH (26-32) pg MCHC (32-36) g/dl RDW (11.5-14.0) % Plt Count (150-450) K/mm3 MPV (7.5-11.0) fl Gran % (36.0-66.0) % Eos # (Auto) (0-0.5) Absolute Lymphs (auto) (1.0-4.6) Absolute Monos (auto) (0.0-1.3) Lymphocytes % (24.0-44.0) % Monocytes % (0.0-12.0) % Eosinophils % (0.00-5.0) % Basophils % (0.0-0.4) % Absolute Granulocytes (1.4-6.9) Basophils # (0-0.4) PT (9.95-12.35) SECONDS INR (0.8-3.0) D-Dimer (215-500) ng/mL Sodium (137-145) mmol/L Potassium (3.5-5.1) mmol/L Chloride (98-107) mmol/L Carbon Dioxide (22-30) mmol/L Anion Gap (5-15) MEQ/L BUN (7-17) mg/dL Creatinine (0.52-1.04) mg/dL Estimated GFR ML/MIN Glucose (74-106) mg/dL Lactic Acid 1.7 (0.4-2.0) Calcium (8.4-10.2) mg/dL Magnesium (1.6-2.3) mg/dL Ferritin (6.24-137) ng/mL Total Bilirubin (0.2-1.3) mg/dL AST (14-36) U/L ALT (0-35) U/L Alkaline Phosphatase (38-126) U/L Lactate Dehydrogenase (120-246) U/L Troponin I < 0.012 (0.000-0.034) ng/mL Serum Total Protein (6.3-8.2) g/dL Albumin (3.5-5.0) g/dL Urine Color STRAW (YELLOW) Urine Appearance CLEAR (CLEAR) Urine pH 6.0 (5-6) Ur Specific [place] 1.002 (1.005-1.025) Urine Protein NEGATIVE (Negative) Urine Ketones NEGATIVE (NEGATIVE) Urine Blood NEGATIVE (0-5) Hilario/ul Urine Nitrite NEGATIVE (NEGATIVE) Urine Bilirubin NEGATIVE (NEGATIVE) Urine Urobilinogen NEGATIVE (0-1) mg/dL Ur Leukocyte Esterase NEGATIVE (NEGATIVE) Urine WBC (Auto) NONE SEEN (0-5) /HPF Urine RBC (Auto) NONE (0-2) /HPF U Epithel Cells (Auto) RARE (FEW) /HPF Urine Bacteria (Auto) RARE (NEGATIVE) /HPF Urine Mucus (Auto) SLIGHT (NEGATIVE) /HPF Urine Culture Reflexed NO (NO) Urine Glucose NEGATIVE (NEGATIVE) mg/dL Influenza Type A Ag (NEGATIVE) Influenza Type B Ag (NEGATIVE) RSV (PCR) (Negative) 07/05/20 07/05/20 Range/Units 02:44 02:44 WBC 11.1 H (4.0-10.5) K/mm3 RBC 4.95 (4.1-5.4) M/mm3 Hgb 14.2 (12.0-16.0) gm/dl Hct 42.6 (35-47) % MCV 86.1 (78-100) fl MCH 28.7 (26-32) pg MCHC 33.3 (32-36) g/dl RDW 13.0 (11.5-14.0) % Plt Count 238 (150-450) K/mm3 MPV 11.5 H (7.5-11.0) fl Gran % 74.9 H (36.0-66.0) % Eos # (Auto) 0.19 (0-0.5) Absolute Lymphs (auto) 1.65 (1.0-4.6) Absolute Monos (auto) 0.95 (0.0-1.3) Lymphocytes % 14.8 L (24.0-44.0) % Monocytes % 8.5 (0.0-12.0) % Eosinophils % 1.7 (0.00-5.0) % Basophils % 0.1 (0.0-0.4) % Absolute Granulocytes 8.34 H (1.4-6.9) Basophils # 0.01 (0-0.4) PT (9.95-12.35) SECONDS INR (0.8-3.0) D-Dimer (215-500) ng/mL Sodium 138 (137-145) mmol/L Potassium 3.8 (3.5-5.1) mmol/L Chloride 103 (98-107) mmol/L Carbon Dioxide 25 (22-30) mmol/L Anion Gap 14.4 (5-15) MEQ/L BUN 11 (7-17) mg/dL Creatinine 0.68 (0.52-1.04) mg/dL Estimated GFR > 60.0 ML/MIN Glucose 152 H (74-106) mg/dL Lactic Acid (0.4-2.0) Calcium 9.2 (8.4-10.2) mg/dL Magnesium 1.6 (1.6-2.3) mg/dL Ferritin (6.24-137) ng/mL Total Bilirubin 0.30 (0.2-1.3) mg/dL AST 36 (14-36) U/L ALT 33 (0-35) U/L Alkaline Phosphatase 73 (38-126) U/L Lactate Dehydrogenase 138 (120-246) U/L Troponin I (0.000-0.034) ng/mL Serum Total Protein 7.7 (6.3-8.2) g/dL Albumin 4.6 (3.5-5.0) g/dL Urine Color (YELLOW) Urine Appearance (CLEAR) Urine pH (5-6) Ur Specific [place] (1.005-1.025) Urine Protein (Negative) Urine Ketones (NEGATIVE) Urine Blood (0-5) Hilario/ul Urine Nitrite (NEGATIVE) Urine Bilirubin (NEGATIVE) Urine Urobilinogen (0-1) mg/dL Ur Leukocyte Esterase (NEGATIVE) Urine WBC (Auto) (0-5) /HPF Urine RBC (Auto) (0-2) /HPF U Epithel Cells (Auto) (FEW) /HPF Urine Bacteria (Auto) (NEGATIVE) /HPF Urine Mucus (Auto) (NEGATIVE) /HPF Urine Culture Reflexed (NO) Urine Glucose (NEGATIVE) mg/dL Influenza Type A Ag (NEGATIVE) Influenza Type B Ag (NEGATIVE) RSV (PCR) (Negative) - Progress Progress: improved Air Movement: good Blood Culture(s) Obtained: Yes Antibiotics given: Yes - Departure Departure Disposition: Home Clinical Impression: Cough Condition: Stable Critical Care Time: No Referrals: DOCTOR,NO FAMILY [Primary Care Provider] - Instructions: Cough, Adult (DC)
[2020-07-05 04:23] VITALS: BP 132/82; PULSE 92; O2SAT 98
--- NOTE | 2020-07-05 06:43 | XRAY ---
Indication: Cough. Chest pain. Comparison: None Portable chest demonstrates normal heart, lungs, and bony thorax.
== END 2020-07-05 04:14 | disposition home or self-care (01) ==
LOC: ED 02:03
DX: R05 Cough (principal)
CPT/HCPCS: 36415; 71045; 80053; 81001; 82728; 83605; 83615; 83735; 84484; 85025; 85379; 85610; 86140; 87040; 87631; 93005; 96360; 99284; U0003

== ENCOUNTER 2022-06-08 16:31 | Emergency (ER) | payer MEDICAID ==
[2022-06-08] MEDS ORDERED: Sodium Chloride 0.9% 1000 ML 1,000 ML IV STA (16:44)
--- NOTE | 2022-06-08 16:50 | ERPHSYRPT ---
- History of Present Illness Time Seen by Provider: 06/08/22 16:47 Source: patient Exam Limitations: no limitations Physician History: Patient is a 32-year-old white female who started with sneezing yesterday and then this morning started with chest pain right upper chest radiating into the right arm with a cough or deep breath. She also has had some sore throat she d enies any fever chills or sweats she has had no nausea vomiting or diarrhea she states that it feels like her previous bronchitis. She does not describe the discomfort in her chest as pain only has discomfort. She has had no known COVID exposures. She says she is not really short of breath but says her chest does feel heavy. Timing/Duration: yesterday Cough Quality/Degree: dry cough Possible Cause: occasional episodes Modifying Factors: Improves With: coughing, deep breath Associated Symptoms: chest pain/soreness, cough, sore throat Allergies/Adverse Reactions: No Known Drug Allergies Allergy (Verified 06/08/22 16:43) Hx Tetanus, Diphtheria Vaccination/Date Given: No Hx Influenza Vaccination/Date Given: No Hx Pneumococcal Vaccination/Date Given: No - Review of Systems Constitutional: No Fever, No Chills Eyes: No Symptoms Ears, Nose, & Throat: Throat Pain Respiratory: Cough, Dyspnea Cardiac: Chest Pain, No Edema, No Syncope Abdominal/Gastrointestinal: No Abdominal Pain, No Nausea, No Vomiting, No Diarrhea Genitourinary Symptoms: No Dysuria Musculoskeletal: No Back Pain, No Neck Pain Skin: No Rash Neurological: No Dizziness, No Focal Weakness, No Sensory Changes Psychological: No Symptoms Endocrine: No Symptoms All Other Systems: Reviewed and Negative - Past Medical History Pertinent Past Medical History: Yes Neurological History: No Pertinent History ENT History: No Pertinent History Cardiac History: Hypertension Respiratory History: Bronchitis Endocrine Medical History: No Pertinent History Musculoskeletal History: Other GI Medical History: No Pertinent History History: No Pertinent History Psycho-Social History: Anxiety, Depression Female Reproductive Disorders: Other Other Medical History: BACK PROBLEMS, gestational diabetes prior - Past Surgical History Past Surgical History: Yes Neuro Surgical History: No Pertinent History Cardiac: No Pertinent History Respiratory: No Pertinent History Gastrointestinal: No Pertinent History Genitourinary: No Pertinent History Female Surgical History: Tubal Ligation - Social History Smoking Status: Current every day smoker How long have you smoked: 16yrs Exposure to second hand smoke: No Drug Use: none Patient Lives Alone: No - Female History Hx Now: No - Nursing Vital Signs Nursing Vital Signs: Initial Vital Signs Temperature 97.5 F 06/08/22 16:44 Pulse Rate 99 H 06/08/22 16:44 Respiratory Rate 18 06/08/22 16:44 Blood Pressure 143/97 06/08/22 16:44 O2 Sat by Pulse Oximetry 99 06/08/22 16:44 Pain Scale Pain Intensity 2 - Physical Exam General Appearance: mild distress, alert Eye Exam: PERRL/EOMI, eyes nml inspection Ears, Nose, Throat Exam: normal ENT inspection, TMs normal, pharynx normal, moist mucous membranes Neck Exam: normal inspection, non-tender, supple, full range of motion Respiratory Exam: normal breath sounds, lungs clear, No respiratory distress Cardiovascular Exam: regular rate/rhythm, normal heart sounds Gastrointestinal/Abdomen Exam: soft, No tenderness Back Exam: normal inspection, No CVA tenderness, No vertebral tenderness Extremity Exam: normal inspection, normal range of motion Neurologic Exam: alert, oriented x 3, cooperative, normal mood/affect, sensation nml, No motor deficits Skin Exam: normal color, warm, dry, No rash Lymphatic Exam: No adenopathy SpO2 Interpretation: normal SpO2: 98 O2 Delivery: Room Air - Course Nursing assessment & vital signs reviewed: Yes EKG Interpreted by Me: RATE (94), Sinus Rhythm, Non-specific ST Changes, Other (Interventricular conduction delay right bundle branch type) - Radiology Exams Chest X-ray Interpretation: Interpreted by me, Negative Ordered Tests: Active Orders 24 hr Category Date Time Status EKG-ER Only STAT Care 06/08/22 16:44 Active IV Insertion STAT Care 06/08/22 16:44 Active CHEST 1 VIEW (PORTABLE) Stat Exams 06/08/22 16:44 Completed AMYLASE Stat Lab 06/08/22 17:10 Completed CBC W DIFF Stat Lab 06/08/22 17:10 Completed CMP Stat Lab 06/08/22 17:10 Completed D-DIMER QUANTITATIVE Stat Lab 06/08/22 17:10 Completed Erythrocyte Sedimentation Rate Stat Lab 06/08/22 17:10 Completed LIPASE Stat Lab 06/08/22 17:10 Completed Lactic Acid Stat Lab 06/08/22 16:44 Completed NT PRO BNP Stat Lab 06/08/22 17:10 Completed TROPONIN Q3H Lab 06/08/22 17:10 Completed TROPONIN Q3H Lab 06/08/22 19:45 Ordered TROPONIN Q3H Lab 06/08/22 22:45 Ordered TROPONIN Q3H Lab 06/09/22 01:45 Ordered TROPONIN Q3H Lab 06/09/22 04:45 Ordered UA W/RFX CULTURE Stat Lab 06/08/22 16:52 Completed Medication Summary Discontinued Medications Generic Name Dose Route Start Last Admin Trade Name Freq PRN Reason Stop Dose Admin Sodium Chloride 1,000 mls @ 999 mls/hr 06/08/22 16:44 06/08/22 17:11 Sodium Chloride 0.9% 1000 Ml IV 06/08/22 17:44 999 mls/hr .Q1H1M STA Administration Sodium Chloride Confirm 06/08/22 17:06 Sodium Chloride 0.9% 1000 Ml Administered 06/08/22 17:07 Dose 1,000 mls @ ud .ROUTE .STK-MED ONE Lab/Rad Data: Laboratory Result Diagrams 06/08/22 17:10 06/08/22 17:10 Laboratory Results 06/08/22 06/08/22 06/08/22 Range/Units 17:20 17:10 17:10 WBC (4.0-10.5) x10^3/uL RBC (4.1-5.4) x10^6/uL Hgb (12.0-16.0) g/dL Hct (35-47) % MCV (78-100) fL MCH (26-32) pg MCHC (32-36) g/dL RDW (11.5-14.0) % Plt Count (150-450) x10^3/uL MPV (7.5-11.0) fL Gran % (36.0-66.0) % Immature Gran % (Auto) (0.00-0.4) % Nucleat RBC Rel Count (0.00-0.1) % Eos # (Auto) (0-0.5) x10^3/uL Immature Gran # (Auto) (0.00-0.03) x10^3u/L Absolute Lymphs (auto) (1.0-4.6) x10^3/uL Absolute Monos (auto) (0.0-1.3) x10^3/uL Absolute Nucleated RBC (0.00-0.01) x10^3u/L Lymphocytes % (24.0-44.0) % Monocytes % (0.0-12.0) % Eosinophils % (0.00-5.0) % Basophils % (0.0-0.4) % Absolute Granulocytes (1.4-6.9) x10^3/uL Basophils # (0-0.4) x10^3/uL ESR (0-20) mm/hr D-Dimer 0.49 (0.0-0.50) mg/L Sodium (137-145) mmol/L Potassium (3.5-5.1) mmol/L Chloride (98-107) mmol/L Carbon Dioxide (22-30) mmol/L Anion Gap (5-15) MEQ/L BUN (7-17) mg/dL Creatinine (0.52-1.04) mg/dL Estimated GFR ML/MIN Glucose (74-106) mg/dL Lactic Acid (0.4-2.0) Calcium (8.4-10.2) mg/dL Total Bilirubin (0.2-1.3) mg/dL AST (14-36) U/L ALT (0-35) U/L Alkaline Phosphatase (38-126) U/L Troponin I < 0.012 (0.000-0.034) ng/mL NT-Pro-B Natriuret Pep (0-450) pg/mL Serum Total Protein (6.3-8.2) g/dL Albumin (3.5-5.0) g/dL Amylase (30-110) U/L Lipase (23-300) U/L Urinalys Dipstick Clnc Urine Color (YELLOW) Urine Appearance (CLEAR) Urine pH (5-6) Ur Specific [place] (1.005-1.025) POC Urine Protein Conf (Negative) Urine Ketones (NEGATIVE) Urine Nitrite (NEGATIVE) Urine Bilirubin (NEGATIVE) Urine Urobilinogen (0-1) mg/dL Urine Leukocytes (NEGATIVE) Urine WBC (Auto) (0-5) /HPF Urine RBC (Auto) (0-2) /HPF U Epithel Cells (Auto) (FEW) /HPF Urine Bacteria (Auto) (NEGATIVE) /HPF Urine RBC (0-5) Hilario/ul Ur Culture Indicated? Urine Glucose (NEGATIVE) mg/dL Influenza Type A Ag NEGATIVE (NEGATIVE) Influenza Type B Ag NEGATIVE (NEGATIVE) RSV (PCR) NEGATIVE (Negative) SARS-CoV-2 (PCR) NEGATIVE (NEGATIVE) 06/08/22 06/08/22 06/08/22 Range/Units 17:10 17:10 16:52 WBC 12.8 H (4.0-10.5) x10^3/uL RBC 4.68 (4.1-5.4) x10^6/uL Hgb 12.4 (12.0-16.0) g/dL Hct 38.7 (35-47) % MCV 82.7 (78-100) fL MCH 26.5 (26-32) pg MCHC 32.0 (32-36) g/dL RDW 13.3 (11.5-14.0) % Plt Count 260 (150-450) x10^3/uL MPV 11.2 H (7.5-11.0) fL Gran % 81.8 H (36.0-66.0) % Immature Gran % (Auto) 0.2 (0.00-0.4) % Nucleat RBC Rel Count 0.0 (0.00-0.1) % Eos # (Auto) 0.10 (0-0.5) x10^3/uL Immature Gran # (Auto) 0.02 (0.00-0.03) x10^3u/L Absolute Lymphs (auto) 1.27 (1.0-4.6) x10^3/uL Absolute Monos (auto) 0.91 (0.0-1.3) x10^3/uL Absolute Nucleated RBC 0.00 (0.00-0.01) x10^3u/L Lymphocytes % 9.9 L (24.0-44.0) % Monocytes % 7.1 (0.0-12.0) % Eosinophils % 0.8 (0.00-5.0) % Basophils % 0.2 (0.0-0.4) % Absolute Granulocytes 10.45 H (1.4-6.9) x10^3/uL Basophils # 0.02 (0-0.4) x10^3/uL ESR 28 H (0-20) mm/hr D-Dimer (0.0-0.50) mg/L Sodium 140 (137-145) mmol/L Potassium 3.9 (3.5-5.1) mmol/L Chloride 105 (98-107) mmol/L Carbon Dioxide 24 (22-30) mmol/L Anion Gap 15.2 H (5-15) MEQ/L BUN 7 (7-17) mg/dL Creatinine 0.60 (0.52-1.04) mg/dL Estimated GFR > 60.0 ML/MIN Glucose 145 H (74-106) mg/dL Lactic Acid (0.4-2.0) Calcium 8.4 (8.4-10.2) mg/dL Total Bilirubin 0.20 (0.2-1.3) mg/dL AST 27 (14-36) U/L ALT 24 (0-35) U/L Alkaline Phosphatase 69 (38-126) U/L Troponin I (0.000-0.034) ng/mL NT-Pro-B Natriuret Pep 36.0 (0-450) pg/mL Serum Total Protein 7.3 (6.3-8.2) g/dL Albumin 4.1 (3.5-5.0) g/dL Amylase 75 (30-110) U/L Lipase 81 (23-300) U/L Urinalys Dipstick Clnc MAIN LAB Urine Color YELLOW (YELLOW) Urine Appearance CLEAR (CLEAR) Urine pH 5.5 (5-6) Ur Specific [place] 1.025 (1.005-1.025) POC Urine Protein Conf NEGATIVE (Negative) Urine Ketones NEGATIVE (NEGATIVE) Urine Nitrite NEGATIVE (NEGATIVE) Urine Bilirubin NEGATIVE (NEGATIVE) Urine Urobilinogen 0.2 (0-1) mg/dL Urine Leukocytes NEGATIVE (NEGATIVE) Urine WBC (Auto) 0-2 (0-5) /HPF Urine RBC (Auto) NONE (0-2) /HPF U Epithel Cells (Auto) RARE (FEW) /HPF Urine Bacteria (Auto) NONE SEEN (NEGATIVE) /HPF Urine RBC NEGATIVE (0-5) Hilario/ul Ur Culture Indicated? NO Urine Glucose NEGATIVE (NEGATIVE) mg/dL Influenza Type A Ag (NEGATIVE) Influenza Type B Ag (NEGATIVE) RSV (PCR) (Negative) SARS-CoV-2 (PCR) (NEGATIVE) 06/08/22 Range/Units 16:44 WBC (4.0-10.5) x10^3/uL RBC (4.1-5.4) x10^6/uL Hgb (12.0-16.0) g/dL Hct (35-47) % MCV (78-100) fL MCH (26-32) pg MCHC (32-36) g/dL RDW (11.5-14.0) % Plt Count (150-450) x10^3/uL MPV (7.5-11.0) fL Gran % (36.0-66.0) % Immature Gran % (Auto) (0.00-0.4) % Nucleat RBC Rel Count (0.00-0.1) % Eos # (Auto) (0-0.5) x10^3/uL Immature Gran # (Auto) (0.00-0.03) x10^3u/L Absolute Lymphs (auto) (1.0-4.6) x10^3/uL Absolute Monos (auto) (0.0-1.3) x10^3/uL Absolute Nucleated RBC (0.00-0.01) x10^3u/L Lymphocytes % (24.0-44.0) % Monocytes % (0.0-12.0) % Eosinophils % (0.00-5.0) % Basophils % (0.0-0.4) % Absolute Granulocytes (1.4-6.9) x10^3/uL Basophils # (0-0.4) x10^3/uL ESR (0-20) mm/hr D-Dimer (0.0-0.50) mg/L Sodium (137-145) mmol/L Potassium (3.5-5.1) mmol/L Chloride (98-107) mmol/L Carbon Dioxide (22-30) mmol/L Anion Gap (5-15) MEQ/L BUN (7-17) mg/dL Creatinine (0.52-1.04) mg/dL Estimated GFR ML/MIN Glucose (74-106) mg/dL Lactic Acid 1.4 (0.4-2.0) Calcium (8.4-10.2) mg/dL Total Bilirubin (0.2-1.3) mg/dL AST (14-36) U/L ALT (0-35) U/L Alkaline Phosphatase (38-126) U/L Troponin I (0.000-0.034) ng/mL NT-Pro-B Natriuret Pep (0-450) pg/mL Serum Total Protein (6.3-8.2) g/dL Albumin (3.5-5.0) g/dL Amylase (30-110) U/L Lipase (23-300) U/L Urinalys Dipstick Clnc Urine Color (YELLOW) Urine Appearance (CLEAR) Urine pH (5-6) Ur Specific [place] (1.005-1.025) POC Urine Protein Conf (Negative) Urine Ketones (NEGATIVE) Urine Nitrite (NEGATIVE) Urine Bilirubin (NEGATIVE) Urine Urobilinogen (0-1) mg/dL Urine Leukocytes (NEGATIVE) Urine WBC (Auto) (0-5) /HPF Urine RBC (Auto) (0-2) /HPF U Epithel Cells (Auto) (FEW) /HPF Urine Bacteria (Auto) (NEGATIVE) /HPF Urine RBC (0-5) Hilario/ul Ur Culture Indicated? Urine Glucose (NEGATIVE) mg/dL Influenza Type A Ag (NEGATIVE) Influenza Type B Ag (NEGATIVE) RSV (PCR) (Negative) SARS-CoV-2 (PCR) (NEGATIVE) - Progress Progress: unchanged Air Movement: good Blood Culture(s) Obtained: No Antibiotics given: Yes - Departure Departure Disposition: Home Clinical Impression: Bronchitis Condition: Stable Critical Care Time: No Referrals: DOCTOR,NO FAMILY [Primary Care Provider] - Follow up/PCP as directed Instructions: Cough, Adult (DC) Prescriptions: Cephalexin Mh 500 mg [Keflex 500 mg] 500 mg PO QID #40 cap Diclofenac Sodium 50 mg [Voltaren 50 mg] 50 mg PO TID 5 Days #15 cap
[2022-06-08 16:51] VITALS: O2SAT 98
[2022-06-08] MEDS ORDERED: Sodium Chloride 0.9% 1000 ML 1,000 ML ONE (17:06)
--- NOTE | 2022-06-08 17:07 | XRAY ---
Indication: Cough and short of breath. Comparison: July 05, 2020. Portable chest again demonstrates normal heart, lungs, and bony thorax.
[2022-06-08 17:26] LABS: Absolute Neutrophil Ct (ANC) 10.45 x10^3/uL (1.4-6.9); Basophil (Absolute #) 0.02 x10^3/uL (0-0.4); Eosinophil % 0.8 % (0.00-5.0); Hematocrit 38.7 % (35-47); Hemoglobin 12.4 g/dL (12.0-16.0); Lymphocyte (Absolute #) 1.27 x10^3/uL (1.0-4.6); Lymphocytes % 9.9 % (24.0-44.0); Mean Cell Volume 82.7 fL (78-100); Mean Corpuscular Hemoglobin 26.5 pg (26-32); Mean Platelet Volume 11.2 fL (7.5-11.0); Monocyte (Absolute #) 0.91 x10^3/uL (0.0-1.3); Monocytes % 7.1 % (0.0-12.0); Neutrophil % 81.8 % (36.0-66.0); Platelet Count 260 x10^3/uL (150-450); Red Blood Count 4.68 x10^6/uL (4.1-5.4); Red Cell Distribution Width 13.3 % (11.5-14.0); White Blood Count 12.8 x10^3/uL (4.0-10.5)
[2022-06-08 17:46] LABS: ALBUMIN 4.1 g/dL (3.5-5.0); ALKALINE PHOSPHATASE 69 U/L (38-126); AMYLASE 75 U/L (30-110); ANION GAP 15.2 MEQ/L (5-15); BLOOD UREA NITROGEN 7 mg/dL (7-17); CHLORIDE 105 mmol/L (98-107); Calcium 8.4 mg/dL (8.4-10.2); Carbon Dioxide 24 mmol/L (22-30); EST GLOMERULAR FILTRATION RATE > 60.0 ML/MIN; Glucose 145 mg/dL (74-106); LIPASE 81 U/L (23-300); Potassium 3.9 mmol/L (3.5-5.1); SGOT/AST 27 U/L (14-36); SGPT/ALT 24 U/L (0-35); SODIUM 140 mmol/L (137-145); Total Protein 7.3 g/dL (6.3-8.2)
[2022-06-08 17:48] LABS: Epithelial Cells RARE /HPF (FEW); WBC 0-2 /HPF (0-5)
[2022-06-08 17:50] LABS: Appearance CLEAR (CLEAR); Bilirubin NEGATIVE (NEGATIVE); Glucose NEGATIVE (NEGATIVE); Ketones NEGATIVE (NEGATIVE); Specific Gravity 1.025 (1.005-1.025)
[2022-06-08 17:51] LABS: Bacteria NONE SEEN /HPF (NEGATIVE); Dipstick done @ ? MAIN LAB; Nitrite NEGATIVE (NEGATIVE); Ph 5.5 (5-6); Protein,Urine Dip NEGATIVE (Negative); RBC NEGATIVE Ery/ul (0-5); Urobilinogen 0.2 mg/dL (0-1)
[2022-06-08 17:52] LABS: Urine Cultured Indicated? NO
[2022-06-08 18:03] LABS: INFLUENZA A NEGATIVE (NEGATIVE); INFLUENZA B NEGATIVE (NEGATIVE); RESPIRATORY SYNCTIAL VIRUS NEGATIVE (Negative); SARS-CoV-2 Xpert Express NEGATIVE (NEGATIVE)
[2022-06-08 18:04] LABS: Erythrocyte Sedimentation Rate 28 mm/hr (0-20)
[2022-06-08 18:10] VITALS: BP 144/86; PULSE 86
== END 2022-06-08 18:43 | disposition home or self-care (01) ==
LOC: ED 16:31
DX: J40 Bronchitis, not specified as acute or chronic (principal); R07.9 Chest pain, unspecified; J02.9 Acute pharyngitis, unspecified; R05.1 Acute cough; I10 Essential (primary) hypertension; Z72.0 Tobacco use
CPT/HCPCS: 0241U; 36000; 36415; 71045; 80053; 81015; 82150; 83605; 83690; 83880; 84484; 85025; 85379; 85652; 93005; 99284

== ENCOUNTER 2022-10-26 06:28 | Day surgery (SDC) | payer OTHER ==
[2022-10-26] MEDS ORDERED: CEFAZOLIN 2 GM-D5W BAG** 2 GM/50 ML ML IV SCH (07:00)
[2022-10-26] MEDS ORDERED: Lactated Ringers 1,000 ML IV SCH (07:00)
[2022-10-26] MEDS ORDERED: Versed 2 MG/2 ML Injection IV ONE (07:44)
[2022-10-26] MEDS ORDERED: Reglan 10 MG/2 ML IV ONE (07:44)
[2022-10-26] MEDS ORDERED: Transderm Scop 1.5MG Patch TOP ONE (07:44)
[2022-10-26] MEDS ORDERED: DIPRIVAN 200 MG/20 ML IV ONE (09:25)
[2022-10-26] MEDS ORDERED: Decadron 4 MG INJ ONE (09:26)
[2022-10-26] MEDS ORDERED: SUBLIMAZE 100 MCG/2 ML ONE ×2 (09:26→10:43)
[2022-10-26] MEDS ORDERED: Xylocaine-Mpf 2% 5 Ml Vial ONE (09:26)
[2022-10-26] MEDS ORDERED: Zofran 4 MG/2 ML VIAL ONE (09:26)
[2022-10-26] MEDS ORDERED: TORAdol 30 mg Injection ONE (09:35)
[2022-10-26] MEDS ORDERED: Pepcid 20 MG VIAL IV SCH (10:00)
[2022-10-26 11:18] VITALS: O2SAT 96
[2022-10-26 11:23] VITALS: BP 130/82; PULSE 78
--- NOTE | 2022-10-27 11:31 | OP ---
SURGERY DATE/TIME: 10/26/2022 0956 PREOPERATIVE DIAGNOSIS: Menorrhagia. POSTOPERATIVE DIAGNOSIS: Menorrhagia. PROCEDURE: Hysteroscopy D&C with ablation using NovaSure. SURGEON: Rajeev Fallon D.O. MANAGER OF SELECTION AND ASSESSMENT: Jeni Zazueta, surgical scheduler. ANESTHESIA: General. ESTIMATED BLOOD LOSS: Minimal. COMPLICATIONS: None. INDICATIONS: The risks, benefits, indications and alternatives of the procedure were reviewed with the patient prior to procedure. The patient understood the risk of infection, bleeding, bowel injury, bladder injury, uterine perforation, pelvic infection and thromboembolic disorder associated with this surgery and desires to have this surgery as a possible means to alleviate her current medical condition. DESCRIPTION OF PROCEDURE AND FINDINGS: At this point the patient is taken to the operating room, given general sedation, placed in dorsal lithotomy position, prepped and draped in the usual sterile fashion. A weighted speculum is then placed in the patient's vagina and the anterior lip of the cervix grasped with a single tooth tenaculum. Endocervical dilators were advanced through the endocervical canal as a means to dilate the cervix and the uterus was sounded to approximately 9 cm. From this point, a 5 mm hysteroscope was then placed in through the endocervical region towards the fundal region where there were no gross abnormalities that were located within the endometrial lining. From this point the hysteroscope was removed and a curette was then placed into the fundus of the uterus and curettage was performed in all quadrants of the uterus retrieving a mild to moderate amount of tissue. From this point, hemostasis was obtained. The curette was removed and the NovaSure was then introduced through the endocervical region towards the fundal region and retracted approximately 1 cm with a length of 6.5 cm and a width of 3.5 cm. The instrument was engaged. The machine was turned on for an ablative time of 47 seconds. After complete ablation, the NovaSure was then disengaged and removed from the uterine cavity without complication. From this point all instruments were removed from the patient's vaginal region. The patient was then taken out of the dorsal lithotomy position and was then taken to the recovery room in stable condition. All instruments and laps were accounted for x2.
== END 2022-10-26 11:25 | disposition home or self-care (01) ==
LOC: SDC 06:28
PROVIDERS: ATTEND Obstetrics & Gynecology
DX: N92.0 Excessive and frequent menstruation with regular cycle (principal)
CPT/HCPCS: 81025; 96374; J0690; J1100; J1885; J2250; J2405; J2704; J3010; A9270-GY

== ENCOUNTER 2022-12-20 19:36 | Emergency (ER) | payer OTHER ==
--- NOTE | 2022-12-20 19:52 | ERPHSYRPT ---
- History of Present Illness Time Seen by Provider: 12/20/22 19:52 Source: patient Exam Limitations: no limitations Physician History: This is a 32-year-old white female patient of Dr. Borden who was seen at [facility] outpatient clinic 3 days ago and treated for left ear infection. The left ear pain has improved on amoxicillin antibiotics. The patient was evaluated in the morning and by the evening she has had left forehead and left lateral headache pain that has worsened and is only slightly improved with Excedrin and ibuprofen medication. Patient has no visual changes. She has no strokelike symptoms. She does have a history of hypertension, bronchitis, anxiety and elevated lipids. Patient has never had a headache this bad before. She denies head trauma Timing/Duration: day(s) (3) Quality: aching, throbbing Head Pain Location: frontal (Left), temporal (Left) Severity of Pain-Max: moderate Severity of Pain-Current: mild (To moderate) Recent Head Trauma: no recent headache/trauma Associated Symptoms: denies symptoms Previous symptoms: no prior history Allergies/Adverse Reactions: No Known Drug Allergies Allergy (Verified 12/20/22 20:34) Home Medications: Atorvastatin Calcium 10 mg PO DAILY 10/12/22 [History] Cetirizine HCl [All Day Allergy Relief] 10 mg PO DAILY 10/12/22 [History] Sertraline HCl 50 mg [Zoloft 50 mg Tablet] 50 mg PO UD 10/12/22 [History] Amoxicillin 500 mg PO TID 12/20/22 [History] Fenofibrate 48 mg PO DAILY 12/20/22 [History] Hx Tetanus, Diphtheria Vaccination/Date Given: No Hx Influenza Vaccination/Date Given: No Hx Pneumococcal Vaccination/Date Given: No Travel Risk - International Travel Have you traveled outside of the country in past 3 weeks: No - Coronavirus Screening Are you exhibiting any of the following symptoms?: No Close contact with a COVID-19 positive Pt in past 14-21 Days: No - Vaccine Status Have you recieved a Covid-19 vaccination: No - Review of Systems Constitutional: No Symptoms Eyes: No Symptoms Ears, Nose, & Throat: No Symptoms Respiratory: No Symptoms Cardiac: No Symptoms Abdominal/Gastrointestinal: No Symptoms Genitourinary Symptoms: No Symptoms Musculoskeletal: No Symptoms Skin: No Symptoms Neurological: Headache Psychological: No Symptoms Endocrine: No Symptoms Hematologic/Lymphatic: No Symptoms Immunological/Allergic: No Symptoms All Other Systems: Reviewed and Negative - Past Medical History Pertinent Past Medical History: Yes Neurological History: No Pertinent History ENT History: No Pertinent History Cardiac History: Hypertension Respiratory History: Bronchitis Endocrine Medical History: No Pertinent History Musculoskeletal History: Other GI Medical History: No Pertinent History History: No Pertinent History Psycho-Social History: Anxiety, Depression Female Reproductive Disorders: Other Other Medical History: BACK PROBLEMS, gestational diabetes prior - Past Surgical History Past Surgical History: Yes Neuro Surgical History: No Pertinent History Cardiac: No Pertinent History Respiratory: No Pertinent History Gastrointestinal: No Pertinent History Genitourinary: No Pertinent History Musculoskeletal: No Pertinent History Female Surgical History: Tubal Ligation - Social History Smoking Status: Current every day smoker How long have you smoked: 16yrs Exposure to second hand smoke: No Drug Use: none Patient Lives Alone: No - Nursing Vital Signs Nursing Vital Signs: Initial Vital Signs Temperature 97.2 F 12/20/22 20:37 Pulse Rate 83 12/20/22 20:37 Respiratory Rate 18 12/20/22 20:37 Blood Pressure 147/92 12/20/22 20:37 O2 Sat by Pulse Oximetry 98 12/20/22 20:37 Pain Scale Pain Intensity 3 - Physical Exam General Appearance: no apparent distress, alert, anxiety Eye Exam: PERRL/EOMI, eyes nml inspection Ears, Nose, Throat Exam: normal ENT inspection, moist mucous membranes Neck Exam: normal inspection, non-tender, supple, full range of motion Respiratory Exam: normal breath sounds, lungs clear, No chest tenderness, No respiratory distress Cardiovascular Exam: regular rate/rhythm, normal heart sounds, normal peripheral pulses Gastrointestinal/Abdominal Exam: soft, normal bowel sounds, No tenderness Back Exam: normal inspection, normal range of motion, No CVA tenderness, No vertebral tenderness Extremity Exam: normal inspection, normal range of motion, pelvis stable Mental Status Exam: alert, oriented x 3, 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 Exam: normal hearing, normal speech, PERRL Coordination/Gait Exam: normal finger to nose, normal gait, normal cerebellar function Motor/Sensory Exam: no motor deficit, no sensory deficit, no pronator drift Skin Exam: normal color, warm, dry Lymphatic Exam: No adenopathy SpO2 Interpretation: normal O2 Delivery: Room Air - Course Nursing assessment & vital signs reviewed: Yes Ordered Tests: Active Orders 24 hr Category Date Time Status HEAD WITHOUT CONTRAST [CT] Stat Exams 12/20/22 21:24 Taken - Progress Progress: improved, re-examined Air Movement: good Progress Note: 12/20/22 22:38 CT scan of head without contrast shows no acute intracranial abnormality. There is no comparison studies. Counseled pt/family regarding: diagnosis, need for follow-up, rad results - Departure Departure Disposition: Home Clinical Impression: Headache Condition: Stable Critical Care Time: No Referrals: ALFA BORDEN [Primary Care Provider] - Follow up/PCP as directed Additional Instructions: Continue your antibiotic as prescribed. Alternate Tylenol and ibuprofen as discussed beginning tomorrow afternoon. Do not start your plain Tylenol until after you complete your [place] 5/325 medication.
[2022-12-20 21:15] VITALS: O2SAT 95
[2022-12-20 22:15] VITALS: BP 137/81; PULSE 75
[2022-12-20] MEDS ORDERED: NORCO 5/325 MG PO ONE (22:39)
[2022-12-20] MEDS ORDERED: NORCO 5/325 MG ONE (22:42)
--- NOTE | 2022-12-21 08:34 | XRAY ---
Indication: Left-sided headache. No known injury. Multiple contiguous axial images obtained through the head without contrast. Comparison: None Normal appearing brain parenchyma, ventricles, and bony calvarium. 2.5 cm left and 1.5 cm right maxillary sinus polyps/retention cysts. Remaining paranasal sinuses and mastoid air cells are clear. Impression: Bilateral maxillary sinus polyps/retention cysts. Remaining CT head without contrast exam is normal.
== END 2022-12-20 22:51 | disposition home or self-care (01) ==
LOC: ED 19:36
DX: R51.9 Headache, unspecified (principal); I10 Essential (primary) hypertension; Z79.899 Other long term (current) drug therapy; Z28.310 Unvaccinated for COVID-19; Z72.0 Tobacco use
CPT/HCPCS: 70450; 99283; A9270-GY

== ENCOUNTER 2025-01-17 13:54 | Emergency (ER) | payer OTHER ==
[2025-01-17 14:15] VITALS: RESP 18; TEMP 98.5
--- NOTE | 2025-01-17 14:59 | XRAY ---
Indication: Status post fall. Comparison: None 3 view left knee demonstrates normal bones, articulation, and soft tissues.
--- NOTE | 2025-01-17 15:01 | XRAY ---
Indication: Status post fall. Comparison: January 24, 2024 3 nonweightbearing views left foot unchanged again demonstrating tiny bone islands distal 2nd/4th metatarsals, tiny heel spurs, and navicular/cuboid accessory ossicles. No new/acute findings.
[2025-01-17 15:07] VITALS: O2SAT 97
--- NOTE | 2025-01-17 15:33 | ERPHSYRPT ---
- History of Present Illness Time Seen by Provider: 01/17/25 14:21 Source: patient Exam Limitations: no limitations Patient Subjective Stated Complaint: pt states that she was walking down some stairs and slipped and fell down them. pt states she has pain to her left ankle /foot and hip Triage Nursing Assessment: pt ambulated into the er; pt is axo x4; c/o left ankle/ foot pain; pt states 2/10 pain to LLE; good ROM to LLE; strong left pedal pulse; good cap refill to LLE; skin PDW; no respiratory distress present; hypertensive Physician History: 34 years old female with history of anxiety/depression presented in the ER with complaint of mechanical fall where she slid on ice while coming down the steps and twisted her left lower extremity prior to arrival. Patient was able to get up and ambulate but hurts in the left foot and knee. Some discomfort in the left hip as well. No restricted range of motion at any joint. No deformity noticed. No injury anywhere else. Has intact range of motion at the left hip knee and ankle/foot. Minimal tenderness left medial knee with negative anterior posterior drawer signs. Mildly positive varus test. Mild tenderness dorsum of distal foot with intact distal neurovascular. She is offered pain medication which she declined. Patient ambulated in the ER without any limitations. X-rays knee and foot are negative for any acute trauma findings reviewed by me followed by official read. I believe patient has sprain of left knee and foot, given Ted wrap for the knee and recommended taking Tylenol ibuprofen/intermittent ice application and to avoid exertional activities. Discussed signs symptoms of worsening needing return to ER which She seems understanding stable for discharge. Complexity of problems addressed: Minimal. Complexity of data/test ordered and reviewed: Minimal/limited. Stable vitals, Allergies/Adverse Reactions: No Known Drug Allergies Allergy (Verified 01/17/25 13:59) Home Medications: Cetirizine HCl [All Day Allergy Relief] 10 mg PO DAILY 10/12/22 [History] Sertraline HCl 50 mg [Zoloft 50 mg Tablet] 50 mg PO DAILY 10/12/22 [History] Hx Tetanus, Diphtheria Vaccination/Date Given: No Hx Influenza Vaccination/Date Given: No Hx Pneumococcal Vaccination/Date Given: No Travel Risk - International Travel Have you traveled outside of the country in past 3 weeks: No - Emerging Infectious Disease Are you exhibiting symptoms associated with any current EIDs: No - Review of Systems Constitutional: No Symptoms Ears, Nose, & Throat: No Symptoms Respiratory: No Symptoms Cardiac: No Symptoms Abdominal/Gastrointestinal: No Symptoms Musculoskeletal: Fall, Injury, Joint Pain Skin: No Symptoms Neurological: No Symptoms Endocrine: No Symptoms Hematologic/Lymphatic: No Symptoms - Past Medical History Pertinent Past Medical History: Yes Neurological History: No Pertinent History ENT History: No Pertinent History Cardiac History: Hypertension Respiratory History: Bronchitis Endocrine Medical History: No Pertinent History Musculoskeletal History: Other GI Medical History: No Pertinent History History: No Pertinent History Psycho-Social History: Anxiety, Depression Female Reproductive Disorders: Other Other Medical History: BACK PROBLEMS, gestational diabetes prior - Past Surgical History Past Surgical History: Yes Neuro Surgical History: No Pertinent History Cardiac: No Pertinent History Respiratory: No Pertinent History Gastrointestinal: No Pertinent History Genitourinary: No Pertinent History Musculoskeletal: No Pertinent History Female Surgical History: Tubal Ligation Other Surgical History: ablation - Female History Hx Last Menstrual Period: 2 year ago Hx Now: No - Social History Smoking Status: Current every day smoker How long have you smoked: 16yrs Exposure to second hand smoke: No Drug Use: none - Social Determinants of Health Will the patient participate in the screening: Yes Do you worry about a steady place to live?: No Do you have any problems with any of the following?: No known problems In the past 12 months,have you had to go without utilities?: No Transportation Issues: No Has anyone in your support network made you feel unsafe?: No Have you or anyone in your house had to go w/o enough food: No - Nursing Vital Signs Nursing Vital Signs: Initial Vital Signs Temperature 98.5 F 01/17/25 14:02 Pulse Rate 95 H 01/17/25 14:02 Respiratory Rate 18 01/17/25 14:02 Blood Pressure 161/94 01/17/25 14:02 O2 Sat by Pulse Oximetry 99 01/17/25 14:02 Pain Scale Pain Intensity 2 - Physical Exam General Appearance: no apparent distress, alert Eyes, Ears, Nose, Throat Exam: normal ENT inspection Neck Exam: normal inspection, full range of motion Cardiovascular/Respiratory Exam: normal breath sounds, regular rate/rhythm Hips Exam: bilateral: non-tender, normal inspection, normal range of motion Legs Exam: bilateral leg: non-tender, normal inspection, normal range of motion, no evidence of injury Knees Exam: right knee: non-tender, left knee: bone tenderness, pain (Joint line), soft tissue tenderness, bilateral knee: normal inspection, normal range of motion, no evidence of injury Ankle Exam: bilateral ankle: non-tender, normal inspection, normal range of motion, no evidence of injury Foot Exam: right foot: non-tender, left foot: bone tenderness, pain, bilateral foot: normal inspection, normal range of motion, no evidence of injury DTR - Lower Extremities Exam: ankle (L): 4+ Neuro/Tendon Exam: normal sensation, normal tendon functions Mental Status Exam: alert, oriented x 3, cooperative SpO2 Interpretation: normal SpO2: 97 O2 Delivery: Room Air Ordered Tests: Active Orders 24 hr Category Date Time Status FOOT (MINIMUM 3 VIEWS) Stat Exams 01/17/25 14:23 Completed KNEE (3 VIEWS) Stat Exams 01/17/25 14:23 Completed - Progress Progress: unchanged Progress Note: 01/17/25 15:33 34 years old female with history of anxiety/depression presented in the ER with complaint of mechanical fall where she slid on ice while coming down the steps and twisted her left lower extremity prior to arrival. Patient was able to get up and ambulate but hurts in the left foot and knee. Some discomfort in the left hip as well. No restricted range of motion at any joint. No deformity noticed. No injury anywhere else. Has intact range of motion at the left hip knee and ankle/foot. Minimal tenderness left medial knee with negative anterior posterior drawer signs. Mildly positive varus test. Mild tenderness dorsum of distal foot with intact distal neurovascular. She is offered pain medication which she declined. Patient ambulated in the ER without any limitations. X-rays knee and foot are negative for any acute trauma findings reviewed by me followed by official read. I believe patient has sprain of left knee and foot, given Ted wrap for the knee and recommended taking Tylenol ibuprofen/intermittent ice application and to avoid exertional activities. Discussed signs symptoms of worsening needing return to ER which She seems understanding stable for discharge. Complexity of problems addressed: Minimal. Complexity of data/test ordered and reviewed: Minimal/limited. Stable vitals, Counseled pt/family regarding: diagnosis, need for follow-up, rad results Medical Desision Making - Diagnostic Testing Diagnostic test were ordered, analyzed, and reviewed by me: Yes Radiological Interpretation: Interpreted by me, Reviewed by me - Risk of complications Low Risk: Low risk of morbidity from additional dx testing or treatment The pt has a mod risk of morbidity or mortality based on: Need for prescription drug management - Departure Departure Disposition: Home Clinical Impression: Knee sprain, Foot sprain Condition: Stable Critical Care Time: No Referrals: ALFA MENDOZA [Primary Care Provider] - Follow up with PCP 1 day EDDIE PINZON DO [ACTIVE STAFF] - Follow up/PCP as directed (Call for reevaluation appoint) Instructions: Knee Sprain ED Additional Instructions: Intermittent ice application. Tylenol/ibuprofen as needed. Avoid exertional activities. Follow-up with primary care/orthopedics for reevaluation. Return to ER for any worsening. Prescriptions: Ibuprofen 600 mg PO Q6HPRN PRN 10 Days #20 tablet PRN Reason: Pain
[2025-01-17 15:37] VITALS: BP 152/91; PULSE 77
== END 2025-01-17 15:44 | disposition home or self-care (01) ==
LOC: ED 13:54
DX: S93.602A Unspecified sprain of left foot, initial encounter (principal); S83.92XA Sprain of unspecified site of left knee, initial encounter; W00.1XXA Fall from stairs and steps due to ice and snow, initial encounter; I10 Essential (primary) hypertension; Z79.899 Other long term (current) drug therapy; Z72.0 Tobacco use
CPT/HCPCS: 73562; 73630; 99283